=== PATIENT | female | born 1955 | race Caucasian/White ===

== ENCOUNTER 2018-11-02 19:38 | Inpatient (IN) | payer BC ==
--- NOTE | 2018-11-02 21:56 | ER Document Report ---
ED Medical Screen (RME) - General Chief Complaint: Abnormal Lab Results Stated Complaint: MD REFERRAL Time Seen by Provider: 11/02/18 21:54 Notes: Patient is a 62-year-old female presents the emergency department for abnormal lab values. Patient states she was called by her primary care provider Francisco J Valera at [facility] who told her that after getting labs today her sodium level was low and she needed to present to the emergency room. Patient states her only complaint at this time is intermittent dysuria. Patient states she has had extensive history of recurrent urinary tract infections. Physical exam: Lung sounds clear and equal in all nunez, abdomen soft nontender, GCS 15. I have greeted and performed a rapid initial assessment of this patient. A comprehensive ED assessment and evaluation of the patient, analysis of test results and completion of the medical decision making process will be conducted by additional ED providers. TRAVEL OUTSIDE OF THE [place] IN LAST 30 DAYS: No Physical Exam - Vital signs Vitals: Temp Pulse Resp BP Pulse Ox 98.8 F 82 18 166/87 H 96 11/02/18 19:57 11/02/18 19:57 11/02/18 19:57 11/02/18 19:57 11/02/18 19:57 Course - Vital Signs Vital signs: Temp Pulse Resp BP Pulse Ox 98.8 F 82 18 166/87 H 96 11/02/18 19:57 11/02/18 19:57 11/02/18 19:57 11/02/18 19:57 11/02/18 19:57 Doctor's Discharge - Discharge Referrals: FRANCISCO J MACIAS PA-C [Primary Care Provider] - Follow up as needed
--- NOTE | 2018-11-02 22:24 | ER Document Report ---
ED General - General Chief Complaint: Abnormal Lab Results Stated Complaint: MD REFERRAL Time Seen by Provider: 11/02/18 21:54 Notes: Patient is a 62-year-old female that comes to the emergency department for chief complaint of abnormal lab values. Patient states that she was referred to nephrology (Dr. Silva), had labs performed today, was contacted and told to go to the emergency department because her sodium level was 119. She states that she has had nausea and her states she has been acting sluggish. She denies fever chills, chest pain, dizziness. Patient states that ever since the holidays she has had more trouble eating and she has had different times where she had vomiting episodes, this has mostly resolved but her electrolyte have been abnormal since that time. Patient's only symptom complaint is intermittent dysuria. She states she has repeated urinary tract infections. Remaining medical history includes cholecystectomy, partial hysterectomy, hyperlipidemia, and resolved breast cancer after mastectomy and chemotherapy. TRAVEL OUTSIDE OF THE [place] IN LAST 30 DAYS: No Past Medical History - General Information source: Patient - Social History Smoking Status: Never Smoker Frequency of alcohol use: None Drug Abuse: None Lives with: Family Family History: Reviewed & Not Pertinent - Past Medical History Cardiac Medical History: Reports: Hx Hypercholesterolemia Malignancy Medical History: Reports: Hx Breast Cancer Past Surgical History: Reports: Hx Cholecystectomy, Hx Hysterectomy - Immunizations Hx Diphtheria, Pertussis, Tetanus Vaccination: Yes Review of Systems - Review of Systems Constitutional: See HPI EENT: No symptoms reported Cardiovascular: No symptoms reported Respiratory: No symptoms reported Gastrointestinal: See HPI Genitourinary: No symptoms reported Female Genitourinary: No symptoms reported Musculoskeletal: No symptoms reported Skin: No symptoms reported Hematologic/Lymphatic: No symptoms reported Neurological/Psychological: See HPI Physical Exam - Vital signs Vitals: Temp Pulse Resp BP Pulse Ox 98.8 F 82 18 166/87 H 96 11/02/18 19:57 11/02/18 19:57 11/02/18 19:57 11/02/18 19:57 11/02/18 19:57 - Notes Notes: Patient is well-appearing on exam. Unremarkable neurological exam. No current complaints other than occasional vague nausea and has been reporting that she is being sluggish. CBC generally unremarkable. Urinalysis does not show infection. Chemistry does show hyponatremia at 122. I suspect this is diet related based on patient's reported history over the past several weeks of difficulty with her diet. Seizure precautions in place, patient on monitor, because of hyponatremia will discuss with hospitalist for admission. Discussed with Dr. Meier. Discussed with Dr. Carpio, hospitalist, patient will be admitted to [facility]. Patient and family member state agreement with plan. Course - Vital Signs Vital signs: Temp Pulse Resp BP Pulse Ox 98.8 F 82 17 166/87 H 96 11/02/18 19:57 11/02/18 19:57 11/03/18 02:00 11/02/18 19:57 11/03/18 01:00 - Laboratory Result Diagrams: 11/02/18 22:30 11/03/18 04:12 Laboratory results interpreted by me: 11/02/18 11/02/18 11/02/18 22:08 22:30 22:30 Monocytes % 15.0 H Sodium 122.4 L Chloride 84 L Carbon Dioxide 31 H Serum Osmolality Ur Leukocyte Esterase TRACE H 11/02/18 22:30 Monocytes % Sodium Chloride Carbon Dioxide Serum Osmolality 249 L Ur Leukocyte Esterase Discharge - Discharge Clinical Impression: Hyponatremia, Nausea Condition: Stable Disposition: ADMITTED INPATIENT Admitting Provider: Hospitalist Unit Admitted: [facility]
[2018-11-02 22:35] LABS: ABSOLUTE LYMPHOCYTES (AUTO) 0.8 10^3/uL (0.5-4.7); ABSOLUTE MONOCYTES (AUTO) 0.6 10^3/uL (0.1-1.4); ABSOLUTE NEUT (AUTO) 2.6 10^3/uL (1.7-8.2); BASOPHILS % (AUTO) 0.6 % (0-2); EOSINOPHILS % (AUTO) 0.9 % (0-6); HEMATOCRIT 41.1 % (36.0-47.0); HEMOGLOBIN 14.5 g/dL (12.0-15.5); LYMPHOCYTES % (AUTO) 18.7 % (13-45); MEAN CORPUSCULAR HEMOGLOBIN 30.2 pg (27.0-33.4); MEAN CORPUSCULAR HGB CONC 35.4 g/dL (32.0-36.0); MEAN CORPUSCULAR VOLUME 86 fl (80-97); PLATELET COUNT 273 10^3/uL (150-450); RED BLOOD COUNT 4.81 10^6/uL (3.72-5.28); RED CELL DISTRIBUTION WIDTH 13.7 % (11.5-14.0); SEGMENTED NEUTROPHILS % (AUTO) 64.8 % (42-78); TOTAL CELLS COUNTED % (AUTO) 100 %; WHITE BLOOD COUNT 4.1 10^3/uL (4.0-10.5)
[2018-11-02 22:37] LABS: APPEARANCE,URINE SLIGHTLY-CLOUDY; BILIRUBIN,URINE NEGATIVE (NEGATIVE); COLOR,URINE YELLOW; GLUCOSE, URINE NEGATIVE (NEGATIVE); KETONES,URINE NEGATIVE (NEGATIVE); LEUKOCYTE ESTERASE,URINE TRACE (NEGATIVE); NITRITE,URINE NEGATIVE (NEGATIVE); PROTEIN,URINE NEGATIVE (NEGATIVE); URINE SPECIFIC GRAVITY 1.011; UROBILINOGEN,URINE NEGATIVE mg/dL (<2.0)
[2018-11-02 22:48] LABS: ALANINE AMINOTRANSFERASE 26 U/L (9-52); ALBUMIN 4.5 g/dL (3.5-5.0); ALKALINE PHOSPHATASE 114 U/L (38-126); ANION GAP 7 (5-19); ASPARTATE AMINO TRANSFERASE 28 U/L (14-36); BILIRUBIN,DIRECT 0.3 mg/dL (0.0-0.4); BILIRUBIN,TOTAL 0.6 mg/dL (0.2-1.3); BLOOD UREA NITROGEN 12 mg/dL (7-20); CALCIUM 9.3 mg/dL (8.4-10.2); CARBON DIOXIDE 31 mmol/L (22-30); CHLORIDE 84 mmol/L (98-107); GLUCOSE 99 mg/dL (75-110); POTASSIUM 4.2 mmol/L (3.6-5.0); SODIUM 122.4 mmol/L (137-145); TOTAL PROTEIN 7.1 g/dL (6.3-8.2)
[2018-11-02] MEDS ORDERED: NORMAL SALINE 1000 ML 1,000 ML IV PRN ×2 (23:08→23:30)
[2018-11-02] MEDS ORDERED: MAG HYDROX/AL HYDROX/SIMETH SUSP 30 ML UDCUP PO PRN (23:17)
[2018-11-03] MEDS ORDERED: FUROSEMIDE INJ/PF 20 MG/2 ML SDV IV ONE (00:08)
[2018-11-03 04:37] LABS: ANION GAP 7 (5-19); BLOOD UREA NITROGEN 12 mg/dL (7-20); CALCIUM 8.9 mg/dL (8.4-10.2); CARBON DIOXIDE 32 mmol/L (22-30); CHLORIDE 86 mmol/L (98-107); GLUCOSE 98 mg/dL (75-110); POTASSIUM 3.8 mmol/L (3.6-5.0); SODIUM 124.8 mmol/L (137-145)
[2018-11-03] MEDS: HEPARIN SOD (PORCINE) 5,000 UNIT/ML 1 ML SYRINGE SUBCUT SCH ×3 (05:34→21:33)
[2018-11-03] MEDS ORDERED: SODIUM CHLORIDE 3% 500 ML IV ONE (06:03)
[2018-11-03] MEDS ORDERED: HYDRALAZINE HCL INJ/PF 20 MG/1 ML SDV IV PRN (06:06)
[2018-11-03] MEDS ORDERED: SODIUM CHLORIDE 3% 150 ML IV ONE ×2 (06:17→06:30)
--- NOTE | 2018-11-03 06:22 | PDOC H&P ---
History of Present Illness Admission Date/PCP: 11/02/18 23:27 LEXIE WOODS MD Patient complains of: Abnormal labs and nausea History of Present Illness: DAYTON LAM is a 62 year old female with a past medical history of depression, resolved breast cancer status post mastectomy and chemotherapy, and hypertension who has had hyponatremia in the 120s from July who was found to have a sodium of 119 and referred to the hospital emergency department for e valuation. Patient has been consuming 64 ounces of Pedialyte over the last 2 months for treatment. Also complains of fatigue and intermittent nausea but denies vomiting, headache or seizure activity. In the emergency room she is found to have a sodium of 122 she receives Zofran and is referred to the hospitalist for admission. She admits a recent increase to her Paxil dose 2 months ago. Patient says she is constantly drinking whether it be Pedialyte or diet Sprite. Past Medical History Cardiac Medical History: Reports: Hyperlipidema Malignancy Medical History: Reports: Breast Cancer Psychiatric Medical History: Reports: Depression Past Surgical History Past Surgical History: Reports: Cholecystectomy, Hysterectomy Social History Information Source: Patient Lives with: Family Smoking Status: Never Smoker Frequency of Alcohol Use: None Drugs: None Hx Prescription Drug Abuse: No - Advance Directive Resuscitation Status: Full Code Family History Family History: Hypertension Parental Family History Reviewed: Yes Children Family History Reviewed: Yes Sibling(s) Family History Reviewed.: Yes Review of Systems Constitutional: PRESENT: as per HPI, fatigue, weakness, weight gain. ABSENT: fe anthony(s), headache(s), night sweats Eyes: ABSENT: visual disturbances Ears: ABSENT: hearing changes Cardiovascular: ABSENT: chest pain, dyspnea on exertion, edema, orthropnea, palpitations Respiratory: ABSENT: cough, hemoptysis Gastrointestinal: ABSENT: abdominal pain, constipation, diarrhea, hematemesis, hematochezia, nausea, vomiting Genitourinary: ABSENT: dysuria, hematuria Musculoskeletal: PRESENT: muscle weakness. ABSENT: joint swelling Integumentary: ABSENT: rash, wounds Neurological: ABSENT: abnormal gait, abnormal speech, confusion, dizziness, focal weakness, syncope Psychiatric: ABSENT: anxiety, depression, homidical ideation, suicidal ideation Endocrine: ABSENT: cold intolerance, heat intolerance, polydipsia, polyuria Hematologic/Lymphatic: ABSENT: easy bleeding, easy bruising Physical Exam Vital Signs: Temp Pulse Resp BP Pulse Ox 98.8 F 82 17 166/87 H 96 11/02/18 19:57 11/02/18 19:57 11/03/18 02:00 11/02/18 19:57 11/03/18 01:00 Intake & Output 11/01/18 11/02/18 11/03/18 11:59 11:59 11:59 Weight 84.4 kg General appearance: PRESENT: no acute distress, well-developed, well-nourished Head exam: PRESENT: atraumatic, normocephalic Eye exam: PRESENT: conjunctiva pink, EOMI, PERRLA. ABSENT: scleral icterus Ear exam: PRESENT: normal external ear exam Mouth exam: PRESENT: moist, tongue midline Neck exam: ABSENT: carotid bruit, JVD, lymphadenopathy, thyromegaly Respiratory exam: PRESENT: clear to auscultation jacqiu. ABSENT: rales, rhonchi, wheezes Cardiovascular exam: PRESENT: RRR. ABSENT: diastolic murmur, rubs, systolic murmur Pulses: PRESENT: normal dorsalis pedis pul Vascular exam: PRESENT: normal capillary refill GI/Abdominal exam: PRESENT: normal bowel sounds, soft. ABSENT: distended, guarding, mass, organolmegaly, rebound, tenderness Rectal exam: PRESENT: deferred Extremities exam: PRESENT: full ROM. ABSENT: calf tenderness, clubbing, pedal edema Neurological exam: PRESENT: alert, awake, oriented to person, oriented to place, oriented to time, oriented to situation, CN II-XII grossly intact. ABSENT: motor sensory deficit Psychiatric exam: PRESENT: appropriate affect, normal mood. ABSENT: homicidal ideation, suicidal ideation Skin exam: PRESENT: dry, intact, warm. ABSENT: cyanosis, rash Results Laboratory Results: 11/02/18 22:30 11/03/18 04:12 11/02/18 11/02/18 11/02/18 22:08 22:08 22:30 WBC 4.1 RBC 4.81 Hgb 14.5 Hct 41.1 MCV 86 MCH 30.2 MCHC 35.4 RDW 13.7 Plt Count 273 Seg Neutrophils % 64.8 Lymphocytes % 18.7 Monocytes % 15.0 H Eosinophils % 0.9 Basophils % 0.6 Absolute Neutrophils 2.6 Absolute Lymphocytes 0.8 Absolute Monocytes 0.6 Absolute Eosinophils 0.0 Absolute Basophils 0.0 Sodium Potassium Chloride Carbon Dioxide Anion Gap BUN Creatinine Est GFR ( Amer) Est GFR (Non-Af Amer) Glucose Serum Osmolality Calcium Total Bilirubin AST ALT Alkaline Phosphatase Total Protein Albumin TSH Urine Color YELLOW Urine Appearance SLIGHTLY-CLOUDY Urine pH 7.0 Ur Specific [place] 1.011 Urine Protein NEGATIVE Urine Glucose (UA) NEGATIVE Urine Ketones NEGATIVE Urine Blood NEGATIVE Urine Nitrite NEGATIVE Ur Leukocyte Esterase TRACE H Urine WBC (Auto) 5 Urine RBC (Auto) 1 Urine Osmolality 487 11/02/18 11/02/18 11/02/18 22:30 22:30 22:30 WBC RBC Hgb Hct MCV MCH MCHC RDW Plt Count Seg Neutrophils % Lymphocytes % Monocytes % Eosinophils % Basophils % Absolute Neutrophils Absolute Lymphocytes Absolute Monocytes Absolute Eosinophils Absolute Basophils Sodium 122.4 L Potassium 4.2 Chloride 84 L Carbon Dioxide 31 H Anion Gap 7 BUN 12 Creatinine 0.61 Est GFR ( Amer) > 60 Est GFR (Non-Af Amer) > 60 Glucose 99 Serum Osmolality 249 L Calcium 9.3 Total Bilirubin 0.6 AST 28 ALT 26 Alkaline Phosphatase 114 Total Protein 7.1 Albumin 4.5 TSH 2.91 Urine Color Urine Appearance Urine pH Ur Specific [place] Urine Protein Urine Glucose (UA) Urine Ketones Urine Blood Urine Nitrite Ur Leukocyte Esterase Urine WBC (Auto) Urine RBC (Auto) Urine Osmolality 11/03/18 04:12 WBC RBC Hgb Hct MCV MCH MCHC RDW Plt Count Seg Neutrophils % Lymphocytes % Monocytes % Eosinophils % Basophils % Absolute Neutrophils Absolute Lymphocytes Absolute Monocytes Absolute Eosinophils Absolute Basophils Sodium 124.8 L Potassium 3.8 Chloride 86 L Carbon Dioxide 32 H Anion Gap 7 BUN 12 Creatinine 0.57 Est GFR ( Amer) > 60 Est GFR (Non-Af Amer) > 60 Glucose 98 Serum Osmolality Calcium 8.9 Total Bilirubin AST ALT Alkaline Phosphatase Total Protein Albumin TSH Urine Color Urine Appearance Urine pH Ur Specific [place] Urine Protein Urine Glucose (UA) Urine Ketones Urine Blood Urine Nitrite Ur Leukocyte Esterase Urine WBC (Auto) Urine RBC (Auto) Urine Osmolality 11/02/18 22:30 NT-Pro-B Natriuret Pep 103 Assessment & Plan - Diagnosis (1) Hyponatremia Is this a current diagnosis for this admission?: Yes Plan: Appears hypotonic, normovolemic follow-up blood and urine osmolarity, urine sodium, trial 3% saline, 150 mL at 75 mL/h, given nausea and fluid restriction. Follow-up chemistry every 6 hours. (2) Nausea Is this a current diagnosis for this admission?: Yes Plan: Secondary to #1, 3% saline and Zofran as needed - Time Time Spent: 50 to 70 Minutes - Inpatient Certification Medical Necessity: Need Close Monitoring Due to Risk of Patient Decompensation
--- NOTE | 2018-11-03 07:14 | EKG REPORT ---
SEVERITY:- ABNORMAL ECG - SINUS RHYTHM PROBABLE LEFT ATRIAL ABNORMALITY RBBB AND LAFB LEFT VENTRICULAR HYPERTROPHY : Confirmed by: Tyshawn Weiss MD 03-Nov-2018 07:13:59
[2018-11-03 11:01] LABS: ANION GAP 7 (5-19); BLOOD UREA NITROGEN 14 mg/dL (7-20); CALCIUM 8.6 mg/dL (8.4-10.2); CARBON DIOXIDE 29 mmol/L (22-30); CHLORIDE 89 mmol/L (98-107); GLUCOSE 111 mg/dL (75-110); POTASSIUM 3.6 mmol/L (3.6-5.0); SODIUM 124.9 mmol/L (137-145)
[2018-11-03] MEDS: ACETAMINOPHEN 325 MG TABLET PO PRN (12:46)
--- NOTE | 2018-11-03 16:41 | PDOC PROGRESS REPORT ---
Subjective Progress Note for:: 11/03/18 Subjective:: No adverse events overnight. No new complaints. No chest pain or shortness of breath. She said she had been having a cough but she never coughed while I was in the room with her. No fevers. No wheezing. She said that she had been on Paxil for about a year and her dose was increased last month. Reason For Visit: HYPONATREMIA,NAUSEA Physical Exam Vital Signs: Temp Pulse Resp BP Pulse Ox 98.8 F 76 16 131/55 H 97 11/03/18 15:08 11/03/18 15:08 11/03/18 15:08 11/03/18 15:08 11/03/18 15:08 Intake & Output 11/02/18 11/03/18 11/04/18 06:59 06:59 06:59 Intake Total 1150 Balance 1150 Weight 84.4 kg General appearance: PRESENT: no acute distress, cooperative, obese Respiratory exam: PRESENT: clear to auscultation jacqui, symmetrical, unlabored. ABSENT: accessory muscle use, crackles, rhonchi, tachypnea, wheezes Cardiovascular exam: PRESENT: RRR, +S1, +S2 Vascular exam: PRESENT: normal capillary refill GI/Abdominal exam: PRESENT: normal bowel sounds, soft. ABSENT: distended, guarding, rebound, tenderness Extremities exam: ABSENT: clubbing, pedal edema Musculoskeletal exam: PRESENT: normal inspection. ABSENT: deformity Neurological exam: PRESENT: alert, awake, oriented to person, oriented to place, oriented to time, oriented to situation Psychiatric exam: PRESENT: appropriate affect, normal mood Skin exam: PRESENT: dry, warm Results Laboratory Results: 11/02/18 22:30 11/03/18 10:24 11/02/18 11/02/18 11/02/18 22:08 22:08 22:30 WBC 4.1 RBC 4.81 Hgb 14.5 Hct 41.1 MCV 86 MCH 30.2 MCHC 35.4 RDW 13.7 Plt Count 273 Seg Neutrophils % 64.8 Lymphocytes % 18.7 Monocytes % 15.0 H Eosinophils % 0.9 Basophils % 0.6 Absolute Neutrophils 2.6 Absolute Lymphocytes 0.8 Absolute Monocytes 0.6 Absolute Eosinophils 0.0 Absolute Basophils 0.0 Sodium Potassium Chloride Carbon Dioxide Anion Gap BUN Creatinine Est GFR ( Amer) Est GFR (Non-Af Amer) Glucose Serum Osmolality Calcium Total Bilirubin AST ALT Alkaline Phosphatase Total Protein Albumin TSH Urine Color YELLOW Urine Appearance SLIGHTLY-CLOUDY Urine pH 7.0 Ur Specific [place] 1.011 Urine Protein NEGATIVE Urine Glucose (UA) NEGATIVE Urine Ketones NEGATIVE Urine Blood NEGATIVE Urine Nitrite NEGATIVE Ur Leukocyte Esterase TRACE H Urine WBC (Auto) 5 Urine RBC (Auto) 1 Urine Osmolality 487 11/02/18 11/02/18 11/02/18 22:30 22:30 22:30 WBC RBC Hgb Hct MCV MCH MCHC RDW Plt Count Seg Neutrophils % Lymphocytes % Monocytes % Eosinophils % Basophils % Absolute Neutrophils Absolute Lymphocytes Absolute Monocytes Absolute Eosinophils Absolute Basophils Sodium 122.4 L Potassium 4.2 Chloride 84 L Carbon Dioxide 31 H Anion Gap 7 BUN 12 Creatinine 0.61 Est GFR ( Amer) > 60 Est GFR (Non-Af Amer) > 60 Glucose 99 Serum Osmolality 249 L Calcium 9.3 Total Bilirubin 0.6 AST 28 ALT 26 Alkaline Phosphatase 114 Total Protein 7.1 Albumin 4.5 TSH 2.91 Urine Color Urine Appearance Urine pH Ur Specific [place] Urine Protein Urine Glucose (UA) Urine Ketones Urine Blood Urine Nitrite Ur Leukocyte Esterase Urine WBC (Auto) Urine RBC (Auto) Urine Osmolality 11/03/18 11/03/18 04:12 10:24 WBC RBC Hgb Hct MCV MCH MCHC RDW Plt Count Seg Neutrophils % Lymphocytes % Monocytes % Eosinophils % Basophils % Absolute Neutrophils Absolute Lymphocytes Absolute Monocytes Absolute Eosinophils Absolute Basophils Sodium 124.8 L 124.9 L Potassium 3.8 3.6 Chloride 86 L 89 L Carbon Dioxide 32 H 29 Anion Gap 7 7 BUN 12 14 Creatinine 0.57 0.59 Est GFR ( Amer) > 60 > 60 Est GFR (Non-Af Amer) > 60 > 60 Glucose 98 111 H Serum Osmolality Calcium 8.9 8.6 Total Bilirubin AST ALT Alkaline Phosphatase Total Protein Albumin TSH Urine Color Urine Appearance Urine pH Ur Specific [place] Urine Protein Urine Glucose (UA) Urine Ketones Urine Blood Urine Nitrite Ur Leukocyte Esterase Urine WBC (Auto) Urine RBC (Auto) Urine Osmolality 11/02/18 22:30 NT-Pro-B Natriuret Pep 103 Assessment & Plan - Diagnosis (1) Hyponatremia Is this a current diagnosis for this admission?: Yes Plan: Her Paxil has been discontinued. Normal saline is she has had a slight improvement in her sodium. We will continue to monitor her sodium at regular intervals as we try to replace it slowly IV. Apparently this is been an issue is been going on with her for some time. She said that she had recently been to see a mail inserter about it as well, and will have her follow-up with them after discharge. - Time Time Spent with patient: 15-24 minutes
[2018-11-03 17:12] LABS: ANION GAP 7 (5-19); BLOOD UREA NITROGEN 18 mg/dL (7-20); CALCIUM 8.8 mg/dL (8.4-10.2); CARBON DIOXIDE 29 mmol/L (22-30); CHLORIDE 89 mmol/L (98-107); GLUCOSE 101 mg/dL (75-110); POTASSIUM 4.1 mmol/L (3.6-5.0); SODIUM 124.6 mmol/L (137-145)
[2018-11-03] MEDS: NORMAL SALINE 1000 ML 1,000 ML IV PRN (18:03)
[2018-11-03 23:08] LABS: ANION GAP 7 (5-19); BLOOD UREA NITROGEN 18 mg/dL (7-20); CALCIUM 8.7 mg/dL (8.4-10.2); CARBON DIOXIDE 27 mmol/L (22-30); CHLORIDE 90 mmol/L (98-107); GLUCOSE 125 mg/dL (75-110); POTASSIUM 3.5 mmol/L (3.6-5.0); SODIUM 124.1 mmol/L (137-145)
[2018-11-04] MEDS: ACETAMINOPHEN 325 MG TABLET PO PRN ×3 (05:11→21:37)
[2018-11-04] MEDS: HEPARIN SOD (PORCINE) 5,000 UNIT/ML 1 ML SYRINGE SUBCUT SCH ×3 (05:14→21:38)
[2018-11-04] MEDS: NORMAL SALINE 1000 ML 1,000 ML IV PRN (06:45)
[2018-11-04 14:32] LABS: URINE SODIUM 124 mmol/L (30-90)
[2018-11-04 14:38] LABS: OSMOLALITY,URINE 453 mOsm/kg (300-900)
--- NOTE | 2018-11-04 19:07 | PDOC PROGRESS REPORT ---
Subjective Progress Note for:: 11/04/18 Subjective:: No adverse events overnight. No new complaints. Vital signs been stable. She still has a little bit of intermittent headache off and on. Her chief concern seems to be that her antidepressant was stopped. Reason For Visit: HYPONATREMIA,NAUSEA Physical Exam Vital Signs: Temp Pulse Resp BP Pulse Ox 97.8 F 86 16 146/71 H 99 11/04/18 12:31 11/04/18 14:00 11/04/18 12:31 11/04/18 12:31 11/04/18 12:31 Intake & Output 11/03/18 11/04/18 11/05/18 06:59 06:59 06:59 Intake Total 2428 Balance 2428 Weight 84.4 kg 85 kg General appearance: PRESENT: no acute distress, cooperative, obese Respiratory exam: PRESENT: clear to auscultation jacqui, symmetrical, unlabored. ABSENT: accessory muscle use, crackles, rhonchi, tachypnea, wheezes Cardiovascular exam: PRESENT: RRR, +S1, +S2 Vascular exam: PRESENT: normal capillary refill GI/Abdominal exam: PRESENT: normal bowel sounds, soft. ABSENT: distended, guarding, rebound, tenderness Extremities exam: ABSENT: clubbing, pedal edema Musculoskeletal exam: PRESENT: normal inspection. ABSENT: deformity Neurological exam: PRESENT: alert, awake, oriented to person, oriented to place, oriented to time, oriented to situation Psychiatric exam: PRESENT: appropriate affect, normal mood Skin exam: PRESENT: dry, warm Results Laboratory Results: 11/02/18 22:30 11/03/18 22:36 11/03/18 11/04/18 22:36 13:44 Sodium 124.1 L Potassium 3.5 L Chloride 90 L Carbon Dioxide 27 Anion Gap 7 BUN 18 Creatinine 0.60 Est GFR ( Amer) > 60 Est GFR (Non-Af Amer) > 60 Glucose 125 H Calcium 8.7 Urine Osmolality 453 11/02/18 22:08 Clean Catch Midstream Urine Culture - Final Mixed Urogenital Cassi 11/02/18 22:30 NT-Pro-B Natriuret Pep 103 Assessment & Plan - Diagnosis (1) Hyponatremia Is this a current diagnosis for this admission?: Yes Plan: Her volume status has been corrected and her urine output has been good, but her sodium has not changed. Check some other tests on her, and her TSH is normal, and her morning cortisol is normal. 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 She had a low serum osmolality, high urine osmolality, and a high urine sodium. In addition to stopping her Paxil, I am going to stop her IV fluids and place her on a fluid restriction. - Time Time Spent with patient: 15-24 minutes
[2018-11-04] MEDS ORDERED: LABETALOL HCL INJ 20 MG/4 ML DISP.SYRIN IV PRN (22:02)
[2018-11-05] MEDS: HEPARIN SOD (PORCINE) 5,000 UNIT/ML 1 ML SYRINGE SUBCUT SCH ×3 (05:35→21:17)
[2018-11-05 10:50] LABS: ANION GAP 11 (5-19); BLOOD UREA NITROGEN 13 mg/dL (7-20); CALCIUM 9.4 mg/dL (8.4-10.2); CARBON DIOXIDE 28 mmol/L (22-30); CHLORIDE 86 mmol/L (98-107); GLUCOSE 137 mg/dL (75-110); POTASSIUM 3.7 mmol/L (3.6-5.0)
[2018-11-05] MEDS: ACETAMINOPHEN 325 MG TABLET PO PRN (11:48)
--- NOTE | 2018-11-05 16:54 | PDOC PROGRESS REPORT ---
Subjective Progress Note for:: 11/05/18 Subjective:: No adverse events overnight. No new complaints. Vital signs been stable. Her urine outputs been good and she says the color has lightened up substantially even though she has not been on IV fluids since yesterday. She told me about a chest x-ray that was done at the imaging center and she said the radiologist told her that he "saw something on it" and recommended that she have an ultrasound. I saw the images but there was no report and I was unable to get a return call from the imaging center. Reason For Visit: HYPONATREMIA,NAUSEA Physical Exam Vital Signs: Temp Pulse Resp BP Pulse Ox 98.6 F 71 18 144/64 H 99 11/05/18 14:53 11/05/18 14:53 11/05/18 14:53 11/05/18 14:53 11/05/18 14:53 Intake & Output 11/04/18 11/05/18 11/06/18 06:59 06:59 06:59 Intake Total 2428 300 Balance 2428 300 Weight 85 kg 86.9 kg General appearance: PRESENT: no acute distress, cooperative, obese Respiratory exam: PRESENT: clear to auscultation jacqui, symmetrical, unlabored. ABSENT: accessory muscle use, crackles, rhonchi, tachypnea, wheezes Cardiovascular exam: PRESENT: RRR, +S1, +S2 Vascular exam: PRESENT: normal capillary refill GI/Abdominal exam: PRESENT: normal bowel sounds, soft. ABSENT: distended, guarding, rebound, tenderness Extremities exam: ABSENT: clubbing, pedal edema Musculoskeletal exam: PRESENT: normal inspection. ABSENT: deformity Neurological exam: PRESENT: alert, awake, oriented to person, oriented to place, oriented to time, oriented to situation Psychiatric exam: PRESENT: appropriate affect, normal mood Skin exam: PRESENT: dry, warm Results Laboratory Results: 11/02/18 22:30 11/05/18 10:06 11/05/18 10:06 Sodium 125.0 L Potassium 3.7 Chloride 86 L Carbon Dioxide 28 Anion Gap 11 BUN 13 Creatinine 0.67 Est GFR ( Amer) > 60 Est GFR (Non-Af Amer) > 60 Glucose 137 H Calcium 9.4 11/02/18 22:30 NT-Pro-B Natriuret Pep 103 Assessment & Plan - Diagnosis (1) Hyponatremia Is this a current diagnosis for this admission?: Yes Plan: SIADH is suspected. Paxil has been discontinued. She is being fluid restricted. Sodium is up about a point from yesterday, we will continue to monitor. Because of her history of breast cancer, I may do a CT scan of her [address], because I could not make out anything big and obvious on the chest x-ray, and I have not heard back from the radiologist about the report on the x-ray in question. - Time Time Spent with patient: 15-24 minutes
[2018-11-06] MEDS: HEPARIN SOD (PORCINE) 5,000 UNIT/ML 1 ML SYRINGE SUBCUT SCH ×3 (05:29→22:15)
[2018-11-06 09:45] LABS: ANION GAP 11 (5-19); BLOOD UREA NITROGEN 14 mg/dL (7-20); CALCIUM 9.3 mg/dL (8.4-10.2); CARBON DIOXIDE 27 mmol/L (22-30); CHLORIDE 86 mmol/L (98-107); GLUCOSE 118 mg/dL (75-110); SODIUM 124.1 mmol/L (137-145)
[2018-11-06 09:47] LABS: POTASSIUM 3.6 mmol/L (3.6-5.0)
--- NOTE | 2018-11-06 12:04 | RADIOLOGY REPORT (SQ) ---
EXAM DESCRIPTION: CT CHEST WITH COMPLETED DATE/TIME: 11/06/2018 11:37 am REASON FOR STUDY: cough, hyponatremia, possible mass on x-ray COMPARISON: Chest x-ray dated 11/02/2018. TECHNIQUE: CT scan of the chest performed using helical scanning technique with dynamic intravenous contrast injection. Images reviewed with lung, soft tissue and bone windows. Reconstructed coronal and sagittal MPR and MIP images reviewed. All images stored on PACS. All CT scanners at this facility use dose modulation, iterative reconstruction, and/or weight based d osing when appropriate to reduce radiation dose to as low as reasonably achievable (ALARA). [facility]: Dose Right [facility]: CareDose [facility]: Dose Right [facility]: Teradose 4D [facility]: [employer] CONTRAST TYPE AND DOSE: contrast/concentration: Isovue 350.00 mg/ml; Total Contrast Delivered: 80.0 ml; Total Saline Delivered: 55.0 ml RENAL FUNCTION: BUN 13 creatinine 0.67. RADIATION DOSE: CT Rad equipment meets quality standard of care and radiation dose reduction techniq ues were employed. CTDIvol: 9.7 mGy. DLP: 372 mGy-cm. . LIMITATIONS: None. FINDINGS: LUNGS AND PLEURA: Irregular lobular mass in the right hilum extending into the right lower lobe. Transverse measurements approximately 2.8 cm. Mild linear atelectasis/ scarring in the right lower lobe. No other nodules or masses. No pleural effusion or pleural thickening. HILAR AND MEDIASTINAL STRUCTURES: Enlarged precarinal lymph node measuring 2 x 3 cm. HEART AND VASCULAR STRUCTURES: No aneurysm or dissection. No central pulmonary emboli. No pericardi al effusion. HARDWARE: Left breast implant. UPPER ABDOMEN: No significant findings. Limited exam. THYROID AND OTHER SOFT TISSUES: No masses. No adenopathy. BONES: No significant finding. OTHER: No other significant finding. IMPRESSION: IRREGULAR LOBULAR MASS IN THE RIGHT HILUM EXTENDING INTO THE RIGHT LOWER LOBE. THIS COR RESPONDS WITH THE X-RAY FINDING. THIS COULD BE A PRIMARY TUMOR OR METASTASIS. THERE IS ALSO AN ENLA RGED PRECARINAL LYMPH NODE CONCERNING FOR METASTATIC ADENOPATHY. TECHNICAL DOCUMENTATION: JOB ID: [id number] Quality ID # [id number]: Final reports with documentation of one or more dose reduction techniques (e.g., Au tomated exposure control, adjustment of the mA and/or kV according to patient size, use of iterative reconstruction technique) 2010 [employer]- All Rights Reserved Reading location - IP/workstation name: [email or web address]
[2018-11-06] MEDS: ACETAMINOPHEN 325 MG TABLET PO PRN ×2 (12:52→20:29)
--- NOTE | 2018-11-06 19:08 | PDOC PROGRESS REPORT ---
Subjective Progress Note for:: 11/06/18 Subjective:: No adverse events overnight. No new complaints. Vital signs been stable. Her headache is gone. She has not had much of a cough today. No hemoptysis. Reason For Visit: HYPONATREMIA,NAUSEA Physical Exam Vital Signs: Temp Pulse Resp BP Pulse Ox 97.6 F 74 18 171/74 H 99 11/06/18 15:41 11/06/18 15:41 11/06/18 15:41 11/06/18 15:41 11/06/18 15:41 Intake & Output 11/05/18 11/06/18 11/07/18 06:59 06:59 06:59 Intake Total 675 550 Balance 675 550 Weight 86.9 kg 87.8 kg General appearance: PRESENT: no acute distress, cooperative, obese Respiratory exam: PRESENT: clear to auscultation jacqui, symmetrical, unlabored. ABSENT: accessory muscle use, crackles, rhonchi, tachypnea, wheezes Cardiovascular exam: PRESENT: RRR, +S1, +S2 Vascular exam: PRESENT: normal capillary refill GI/Abdominal exam: PRESENT: normal bowel sounds, soft. ABSENT: distended, guarding, rebound, tenderness Extremities exam: ABSENT: clubbing, pedal edema Musculoskeletal exam: PRESENT: normal inspection. ABSENT: deformity Neurological exam: PRESENT: alert, awake, oriented to person, oriented to place, oriented to time, oriented to situation Psychiatric exam: PRESENT: appropriate affect, normal mood Skin exam: PRESENT: dry, warm Results Laboratory Results: 11/02/18 22:30 11/06/18 09:10 11/06/18 09:10 Sodium 124.1 L Potassium 3.6 Chloride 86 L Carbon Dioxide 27 Anion Gap 11 BUN 14 Creatinine 0.63 Est GFR ( Amer) > 60 Est GFR (Non-Af Amer) > 60 Glucose 118 H Calcium 9.3 11/02/18 22:30 NT-Pro-B Natriuret Pep 103 Impressions: Chest CT 11/06/18 00:00 IMPRESSION: IRREGULAR LOBULAR MASS IN THE RIGHT HILUM EXTENDING INTO THE RIGHT LOWER LOBE. THIS CORRESPONDS WITH THE X-RAY FINDING. THIS COULD BE A PRIMARY TUMOR OR METASTASIS. THERE IS ALSO AN ENLARGED PRECARINAL LYMPH NODE CONCERNING FOR METASTATIC ADENOPATHY. Assessment & Plan - Diagnosis (1) Hyponatremia Is this a current diagnosis for this admission?: Yes Plan: Her sodium is again unchanged. Given the CT scan findings, the mass may be the source. Given that her hyponatremia is stable and she is asymptomatic, and since were already fluid restricting her, I am going to try putting her on some salt tablets. (2) Lung mass Is this a current diagnosis for this admission?: Yes Plan: She will need a biopsy. I am not sure if it is in a place were pulmonology can get to it bronchoscopically to biopsy it, but I am going to ask them to see her to help me obtain the diagnosis. - Time Time Spent with patient: 25-34 minutes
[2018-11-07] MEDS: HEPARIN SOD (PORCINE) 5,000 UNIT/ML 1 ML SYRINGE SUBCUT SCH ×3 (06:02→22:12)
[2018-11-07 08:00] LABS: ANION GAP 8 (5-19); BLOOD UREA NITROGEN 17 mg/dL (7-20); CALCIUM 8.9 mg/dL (8.4-10.2); CARBON DIOXIDE 28 mmol/L (22-30); CHLORIDE 93 mmol/L (98-107); GLUCOSE 87 mg/dL (75-110); POTASSIUM 3.4 mmol/L (3.6-5.0); SODIUM 128.7 mmol/L (137-145)
[2018-11-07] MEDS: ACETAMINOPHEN 325 MG TABLET PO PRN (13:58)
--- NOTE | 2018-11-07 14:32 | RADIOLOGY REPORT (SQ) ---
EXAM DESCRIPTION: CT HEAD WITH COMPLETED DATE/TIME: 11/07/2018 1:40 pm REASON FOR STUDY: right lung mass, r/o metastatic disease COMPARISON: None. TECHNIQUE: Axial images acquired through the brain with intravenous contrast. Images reviewed with b one, brain and subdural windows. Additional sagittal and coronal reconstructions were generated. Eli ges stored on PACS. All CT scanners at this facility use dose modulation, iterative reconstruction, and/or weight based d osing when appropriate to reduce radiation dose to as low as reasonably achievable (ALARA). [facility]: Dose Right [facility]: CareDose [facility]: Dose Right [facility]: Teradose 4D [facility]: [employer] CONTRAST TYPE AND DOSE: Not recorded not recorded RENAL FUNCTION: Not recorded RADIATION DOSE: CT Rad equipment meets quality standard of care and radiation dose reduction techniq ues were employed. CTDIvol: 53.2 mGy. DLP: 1017 mGy-cm.. LIMITATIONS: None. FINDINGS: VENTRICLES: Normal size and contour. CEREBRUM: No masses. No hemorrhage. No midline shift. Normal mendoza/white matter differentiation. No ev idence for acute infarction. No enhancing lesions. CEREBELLUM: No masses. No hemorrhage. No alteration of density. No evidence for acute infarction. No enhancing lesions. EXTRA-AXIAL SPACES: No fluid collections. No enhancing lesions. ORBITS AND GLOBE: No intra- or extraconal masses. Normal contour of globe without masses. CALVARIUM: No fracture. PARANASAL SINUSES: No fluid or mucosal thickening. SOFT TISSUES: No mass or hematoma. OTHER: No other significant finding. IMPRESSION: NORMAL BRAIN CT WITH CONTRAST. No metastases. EVIDENCE OF ACUTE STROKE: NO. TECHNICAL DOCUMENTATION: JOB ID: [id number] Quality ID # [id number]: Final reports with documentation of one or more dose reduction techniques (e.g., Au tomated exposure control, adjustment of the mA and/or kV according to patient size, use of iterative reconstruction technique) 2010 [employer]- All Rights Reserved Reading location - IP/workstation name: [email or web address]
--- NOTE | 2018-11-07 15:12 | PDOC CONSULTATION ---
Consultation Consult Date: 11/07/18 Consult reason:: Hematology/Oncology consultation was requested for patient with a history of breast cancer and now with new lung lesion. History of Present Illness Admission Date/PCP: 11/02/18 23:27 LEXIE WOODS MD History of Present Illness: DAYTON LAM is a 62 year old female who follows with oncology offine in [facility] for a history of Breast cancer. She was diagnosed about 5 years ago with Stage I invasive cancer. ER-Her2+. BRCA status is unknown. She received chemotherapy with Herceptin continued for a total of 1 year. She also underwent lumpectomy, then mastectomy with reconstruction. She did not require any radiation of anti-hormonal treatments. She states that routine labs found that her Na level had dropped suddenly to 119. She also started feeling nauseated for 2 weeks which progressively worsened. The night before admission, she had vomiting and diarrhea. She also reports a headaches but no chest pain or dyspnea. She had her mammogram in Jun of this past year as well as colonoscopy within the last year. Today, she states that her Na is finally starting to improve, but she has been very scared about what the cause is. She is concerned about the CT chest report of a new lesion. Past Medical History Cardiac Medical History: Reports: Hyperlipidema Malignancy Medical History: Reports: Breast Cancer Psychiatric Medical History: Reports: Depression Past Surgical History Past Surgical History: ovaries still in place. Breast Lumpectomy, mastectomy, with reconstruction and contralateral reduction. Past Surgical History: Reports: Cholecystectomy, Hysterectomy, Other Social History Lives with: Family Smoking Status: Current Every Day Smoker Cigarettes Packs Per Day: 1 Number of Years Smokin Frequency of Alcohol Use: None Drugs: None Hx Prescription Drug Abuse: No - Advance Directive Resuscitation Status: Full Code Family History Family History: Hypertension Family History: She has 1 child. Parental Family History Reviewed: Yes - Mom with uterine cancer. Dad CAD Children Family History Reviewed: No Sibling(s) Family History Reviewed.: Yes - Sister hypothyroid and DM Medication/Allergy Home Medications: Acetaminophen [Tylenol Extra Strength 500 mg Tablet] 1,000 mg PO Q4HP PRN 11/03/18 Ondansetron HCl [Zofran 4 mg Tablet] 4 mg PO Q6HP PRN 11/03/18 Paroxetine HCl [Paxil 20 mg Tablet] 20 mg PO QAM 11/03/18 Allergies/Adverse Reactions: codeine Allergy (Verified 11/03/18 15:03) shellfish derived Allergy (Verified 11/03/18 15:03) Review of Systems Constitutional: PRESENT: headache(s). ABSENT: fever(s) Eyes: ABSENT: visual disturbances Ears: ABSENT: hearing changes Nose, Mouth, and Throat: ABSENT: sore throat Cardiovascular: ABSENT: chest pain, palpitations Respiratory: ABSENT: dyspnea Gastrointestinal: PRESENT: diarrhea, nausea, vomiting Genitourinary: ABSENT: dysuria Integumentary: ABSENT: rash Neurological: ABSENT: confusion Psychiatric: PRESENT: anxiety Hematologic/Lymphatic: ABSENT: lymphadenopathy Physical Exam Vital Signs: Temp Pulse Resp BP Pulse Ox 98.6 F 77 16 139/67 H 97 11/07/18 07:15 11/07/18 14:00 11/07/18 07:15 11/07/18 07:15 11/07/18 07:15 Intake & Output 11/06/18 11/07/18 11/08/18 06:59 06:59 06:59 Intake Total 675 550 Balance 675 550 Weight 87.8 kg 87 kg General appearance: PRESENT: no acute distress, obese Head exam: PRESENT: normocephalic Eye exam: PRESENT: EOMI Mouth exam: PRESENT: tongue midline Neck exam: ABSENT: lymphadenopathy, tenderness Respiratory exam: PRESENT: clear to auscultation jacqui, unlabored Cardiovascular exam: PRESENT: RRR GI/Abdominal exam: PRESENT: soft. ABSENT: tenderness Extremities exam: PRESENT: +1 edema Neurological exam: PRESENT: alert, awake, oriented to person, oriented to place, oriented to time, oriented to situation Psychiatric exam: PRESENT: appropriate affect Skin exam: PRESENT: normal color Results Laboratory Results: 11/02/18 22:30 11/07/18 06:17 11/07/18 06:17 Sodium 128.7 L Potassium 3.4 L Chloride 93 L Carbon Dioxide 28 Anion Gap 8 BUN 17 Creatinine 0.56 Est GFR ( Amer) > 60 Est GFR (Non-Af Amer) > 60 Glucose 87 Calcium 8.9 11/02/18 22:30 NT-Pro-B Natriuret Pep 103 Impressions: Chest CT 11/06/18 00:00 IMPRESSION: IRREGULAR LOBULAR MASS IN THE RIGHT HILUM EXTENDING INTO THE RIGHT LOWER LOBE. THIS CORRESPONDS WITH THE X-RAY FINDING. THIS COULD BE A PRIMARY TUMOR OR METASTASIS. THERE IS ALSO AN ENLARGED PRECARINAL LYMPH NODE CONCERNING FOR METASTATIC ADENOPATHY. Head CT 11/07/18 00:00 IMPRESSION: NORMAL BRAIN CT WITH CONTRAST. No metastases. EVIDENCE OF ACUTE STROKE: NO. Status: Image reviewed by me Assessment & Plan - Diagnosis (1) Lung mass Is this a current diagnosis for this admission?: Yes Plan: I agree with plans for bronchoscopy. This could be a primary malignancy, secondary malignancy, or no malignancy at all. (2) Breast cancer Qualifiers: Laterality: unspecified laterality Is this a current diagnosis for this admission?: Yes Plan: History of Her2+ breast cancer 5 years ago. I agree with CT A/P as well as Brain. - Plan Summary Plan Summary: Headache, nausea, hyponatremia all suspicious for cancer. I reviewed results of the CT brain with the patient. No evidence of brain mets. Awaiting CT A/P results. Her care was discussed with Dr. Montenegro. I will continue to follow while in house, but on discharge, she will return to her regular oncologist in [facility].
--- NOTE | 2018-11-07 15:41 | RADIOLOGY REPORT (SQ) ---
EXAM DESCRIPTION: CT ABD/PELVIS WITH IV ORAL COMPLETED DATE/TIME: 11/07/2018 1:40 pm REASON FOR STUDY: right lung mass, r/o metastatic disease COMPARISON: Chest CT 11/06/2018 TECHNIQUE: CT scan of the abdomen and pelvis performed using helical scanning technique with dynamic intravenous contrast injection. Enteric contrast was administered. Images reviewed with lung, soft tissue, and bone windows. Reconstructed coronal and sagittal MPR images reviewed. Delayed images for evaluation of the urinary system also acquired. All images stored on PACS. All CT scanners at this facility use dose modulation, iterative reconstruction, and/or weight based d osing when appropriate to reduce radiation dose to as low as reasonably achievable (ALARA). [facility]: Dose Right [facility]: CareDose [facility]: Dose Right [facility]: Teradose 4D [facility]: [employer] CONTRAST TYPE AND DOSE: contrast/concentration: Isovue 350.00 mg/ml; Total Contrast Delivered: 99.0 ml; Total Saline Delivered: 72.0 ml 99 mL IV of Omnipaque 350- low osmolar. RENAL FUNCTION: BUN 17 creatinine 0.56 RADIATION DOSE: CT Rad equipment meets quality standard of care and radiation dose reduction techniq ues were employed. CTDIvol: 11.0 - 15.5 mGy. DLP: 1311 mGy-cm.. LIMITATIONS: None. FINDINGS: LOWER CHEST: No change from CT of 11/06/2018 LIVER: Normal size. No masses. No dilated ducts. SPLEEN: Normal size. No focal lesions. PANCREAS: No masses. No significant calcifications. No adjacent inflammation or peripancreatic fluid collections. Pancreatic duct not dilated. GALLBLADDER: Surgically absent. ADRENAL GLANDS: No significant masses or asymmetry. RIGHT KIDNEY AND URETER: No solid masses. No significant calcifications. No hydronephrosis or hyd roureter. LEFT KIDNEY AND URETER: No solid masses. No significant calcifications. No hydronephrosis or hydr oureter. AORTA AND VESSELS: No aneurysm. No dissection. Renal arteries, SMA, celiac without stenosis. RETROPERITONEUM: No retroperitoneal adenopathy, hemorrhage or masses. BOWEL AND PERITONEAL CAVITY: No dilated loops of bowel. No masses or inflammatory changes. No free fluid or peritoneal masses. APPENDIX: Normal. PELVIS: No mass. No free fluid. Urinary bladder is collapsed. Uterus is surgically absent. ABDOMINAL WALL: No masses. No hernias. BONES: No significant or acute findings. No sinister bone lesions. OTHER: No other significant finding. IMPRESSION: No evidence of metastatic disease within the abdomen or pelvis. TECHNICAL DOCUMENTATION: JOB ID: [id number] Quality ID # [id number]: Final reports with documentation of one or more dose reduction techniques (e.g., Au tomated exposure control, adjustment of the mA and/or kV according to patient size, use of iterative reconstruction technique) 2010 [employer]- All Rights Reserved Reading location - IP/workstation name: [email or web address]
--- NOTE | 2018-11-07 15:55 | PDOC PROGRESS REPORT ---
Subjective Progress Note for:: 11/07/18 Subjective:: No adverse events overnight. No new complaints. Vital signs been stable. No chest pain or shortness of breath. She is ambulating independently in the room. No cough. Reason For Visit: HYPONATREMIA,NAUSEA Physical Exam Vital Signs: Temp Pulse Resp BP Pulse Ox 98.6 F 77 16 139/67 H 97 11/07/18 07:15 11/07/18 14:00 11/07/18 07:15 11/07/18 07:15 11/07/18 07:15 Intake & Output 11/06/18 11/07/18 11/08/18 06:59 06:59 06:59 Intake Total 675 550 Balance 675 550 Weight 87.8 kg 87 kg General appearance: PRESENT: no acute distress, cooperative, obese Respiratory exam: PRESENT: clear to auscultation jacqui, symmetrical, unlabored. ABSENT: accessory muscle use, crackles, rhonchi, tachypnea, wheezes Cardiovascular exam: PRESENT: RRR, +S1, +S2 Vascular exam: PRESENT: normal capillary refill GI/Abdominal exam: PRESENT: normal bowel sounds, soft. ABSENT: distended, guarding, rebound, tenderness Extremities exam: ABSENT: clubbing, pedal edema Musculoskeletal exam: PRESENT: normal inspection. ABSENT: deformity Neurological exam: PRESENT: alert, awake, oriented to person, oriented to place, oriented to time, oriented to situation Psychiatric exam: PRESENT: appropriate affect, normal mood Skin exam: PRESENT: dry, warm Results Laboratory Results: 11/02/18 22:30 11/07/18 06:17 11/07/18 06:17 Sodium 128.7 L Potassium 3.4 L Chloride 93 L Carbon Dioxide 28 Anion Gap 8 BUN 17 Creatinine 0.56 Est GFR ( Amer) > 60 Est GFR (Non-Af Amer) > 60 Glucose 87 Calcium 8.9 11/02/18 22:30 NT-Pro-B Natriuret Pep 103 Impressions: Chest CT 11/06/18 00:00 IMPRESSION: IRREGULAR LOBULAR MASS IN THE RIGHT HILUM EXTENDING INTO THE RIGHT LOWER LOBE. THIS CORRESPONDS WITH THE X-RAY FINDING. THIS COULD BE A PRIMARY TUMOR OR METASTASIS. THERE IS ALSO AN ENLARGED PRECARINAL LYMPH NODE CONCERNING FOR METASTATIC ADENOPATHY. Abdomen/Pelvis CT 11/07/18 00:00 IMPRESSION: No evidence of metastatic disease within the abdomen or pelvis. Head CT 11/07/18 00:00 IMPRESSION: NORMAL BRAIN CT WITH CONTRAST. No metastases. EVIDENCE OF ACUTE STROKE: NO. Assessment & Plan - Diagnosis (1) Hyponatremia Is this a current diagnosis for this admission?: Yes Plan: Now improving with fluid restriction and salt tablets. 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 Paxil has been discontinued (2) Lung mass Is this a current diagnosis for this admission?: Yes Plan: I have consulted pulmonology and oncology. She will be getting a bronchoscopy in the near future for biopsy. - Time Time Spent with patient: 15-24 minutes
[2018-11-07] MEDS: ONDANSETRON HCL INJ/PF 4 MG/2 ML SDV IV PRN (20:37)
[2018-11-07] MEDS ORDERED: NALBUPHINE HCL INJ 10 MG/1 ML AMPULE IV PRN (21:45)
[2018-11-08] MEDS: ONDANSETRON HCL INJ/PF 4 MG/2 ML SDV IV PRN ×2 (02:53→07:10)
[2018-11-08] MEDS: HEPARIN SOD (PORCINE) 5,000 UNIT/ML 1 ML SYRINGE SUBCUT SCH ×4 (05:23→21:20)
[2018-11-08] MEDS: ACETAMINOPHEN 325 MG TABLET PO PRN ×3 (06:45→21:54)
[2018-11-08 06:54] LABS: ANION GAP 8 (5-19); BLOOD UREA NITROGEN 15 mg/dL (7-20); CALCIUM 9.1 mg/dL (8.4-10.2); CARBON DIOXIDE 30 mmol/L (22-30); CHLORIDE 89 mmol/L (98-107); GLUCOSE 102 mg/dL (75-110); POTASSIUM 3.4 mmol/L (3.6-5.0); SODIUM 126.7 mmol/L (137-145)
[2018-11-08] MEDS ORDERED: POTASSIUM CHLORIDE 10 MEQ CAPSULE.ER PO ONE ×2 (08:43→18:00)
[2018-11-08] MEDS ORDERED: KETOROLAC TROMETHAMINE INJ/PF 30 MG/1 ML SDV IV ONE (09:55)
[2018-11-08] MEDS ORDERED: PROMETHAZINE HCL 25 MG SUPP.RECT PR ONE (11:00)
[2018-11-08] MEDS: SODIUM CHLORIDE 1 GM TABLET PO SCH ×2 (15:52→17:30)
--- NOTE | 2018-11-08 16:35 | PDOC PROGRESS REPORT ---
Subjective Progress Note for:: 11/08/18 Subjective:: No adverse events overnight. No new complaints. She still has a little bit of a cough. No nausea or vomiting. Reason For Visit: HYPONATREMIA,NAUSEA Physical Exam Vital Signs: Temp Pulse Resp BP Pulse Ox 98.2 F 74 16 139/71 H 97 11/08/18 07:21 11/08/18 14:00 11/08/18 07:21 11/08/18 07:21 11/08/18 07:21 Intake & Output 11/07/18 11/08/18 11/09/18 06:59 06:59 06:59 Intake Total 550 1125 150 Output Total 500 Balance 550 625 150 Weight 87 kg 87 kg General appearance: PRESENT: no acute distress, cooperative, obese Respiratory exam: PRESENT: clear to auscultation jacqui, symmetrical, unlabored. ABSENT: accessory muscle use, crackles, rhonchi, tachypnea, wheezes Cardiovascular exam: PRESENT: RRR, +S1, +S2 Vascular exam: PRESENT: normal capillary refill GI/Abdominal exam: PRESENT: normal bowel sounds, soft. ABSENT: distended, guarding, rebound, tenderness Extremities exam: ABSENT: clubbing, pedal edema Musculoskeletal exam: PRESENT: normal inspection. ABSENT: deformity Neurological exam: PRESENT: alert, awake, oriented to person, oriented to place, oriented to time, oriented to situation Psychiatric exam: PRESENT: appropriate affect, normal mood Skin exam: PRESENT: dry, warm Results Laboratory Results: 11/02/18 22:30 11/08/18 05:52 11/08/18 05:52 Sodium 126.7 L Potassium 3.4 L Chloride 89 L Carbon Dioxide 30 Anion Gap 8 BUN 15 Creatinine 0.51 L Est GFR ( Amer) > 60 Est GFR (Non-Af Amer) > 60 Glucose 102 Calcium 9.1 11/02/18 22:30 NT-Pro-B Natriuret Pep 103 Impressions: Chest CT 11/06/18 00:00 IMPRESSION: IRREGULAR LOBULAR MASS IN THE RIGHT HILUM EXTENDING INTO THE RIGHT LOWER LOBE. THIS CORRESPONDS WITH THE X-RAY FINDING. THIS COULD BE A PRIMARY TUMOR OR METASTASIS. THERE IS ALSO AN ENLARGED PRECARINAL LYMPH NODE CONCERNING FOR METASTATIC ADENOPATHY. Abdomen/Pelvis CT 11/07/18 00:00 IMPRESSION: No evidence of metastatic disease within the abdomen or pelvis. Head CT 11/07/18 00:00 IMPRESSION: NORMAL BRAIN CT WITH CONTRAST. No metastases. EVIDENCE OF ACUTE STROKE: NO. Assessment & Plan - Diagnosis (1) Hyponatremia Is this a current diagnosis for this admission?: Yes Plan: Now improving with fluid restriction and salt tablets; the salt tablets somehow did not get continued but I reordered them today. 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 Paxil has been discontinued. The lung mass could also have something to do with it. (2) Lung mass Is this a current diagnosis for this admission?: Yes Plan: I have consulted pulmonology and oncology. She will be getting a bronchoscopy in the near future for biopsy. She will follow-up with oncology as an outpatient. - Time Time Spent with patient: 15-24 minutes
[2018-11-09] MEDS: HEPARIN SOD (PORCINE) 5,000 UNIT/ML 1 ML SYRINGE SUBCUT SCH ×3 (05:18→21:05)
[2018-11-09 06:12] LABS: ANION GAP 7 (5-19); BLOOD UREA NITROGEN 16 mg/dL (7-20); CALCIUM 9.1 mg/dL (8.4-10.2); CARBON DIOXIDE 29 mmol/L (22-30); CHLORIDE 91 mmol/L (98-107); GLUCOSE 92 mg/dL (75-110); POTASSIUM 3.7 mmol/L (3.6-5.0); SODIUM 127.3 mmol/L (137-145)
[2018-11-09] MEDS: ACETAMINOPHEN 325 MG TABLET PO PRN ×2 (08:37→14:40)
--- NOTE | 2018-11-09 09:38 | PDOC PROGRESS REPORT ---
Subjective Progress Note for:: 11/09/18 Subjective:: Patient had a severe migraine headache yesterday with nausea and vomiting. Today, it is a bit better. Still unsure as to cause of her headaches and vomiting. Reason For Visit: HYPONATREMIA,NAUSEA Physical Exam Vital Signs: Temp Pulse Resp BP Pulse Ox 98.3 F 73 20 152/70 H 96 11/09/18 04:07 11/09/18 07:00 11/09/18 04:07 11/09/18 04:07 11/09/18 04:07 Intake & Output 11/08/18 11/09/18 11/10/18 06:59 06:59 06:59 Intake Total 1125 705 Output Total 500 700 Balance 625 5 Weight 87 kg 86.9 kg General appearance: PRESENT: well-developed, well-nourished Head exam: PRESENT: normocephalic Respiratory exam: PRESENT: unlabored Extremities exam: ABSENT: pedal edema Neurological exam: PRESENT: alert, awake, other - Walking around in room without problems. Psychiatric exam: PRESENT: appropriate affect Skin exam: PRESENT: normal color Results Laboratory Results: 11/02/18 22:30 11/09/18 05:13 11/09/18 05:13 Sodium 127.3 L Potassium 3.7 Chloride 91 L Carbon Dioxide 29 Anion Gap 7 BUN 16 Creatinine 0.62 Est GFR ( Amer) > 60 Est GFR (Non-Af Amer) > 60 Glucose 92 Calcium 9.1 11/02/18 22:30 NT-Pro-B Natriuret Pep 103 Impressions: Chest CT 11/06/18 00:00 IMPRESSION: IRREGULAR LOBULAR MASS IN THE RIGHT HILUM EXTENDING INTO THE RIGHT LOWER LOBE. THIS CORRESPONDS WITH THE X-RAY FINDING. THIS COULD BE A PRIMARY TUMOR OR METASTASIS. THERE IS ALSO AN ENLARGED PRECARINAL LYMPH NODE CONCERNING FOR METASTATIC ADENOPATHY. Abdomen/Pelvis CT 11/07/18 00:00 IMPRESSION: No evidence of metastatic disease within the abdomen or pelvis. Head CT 11/07/18 00:00 IMPRESSION: NORMAL BRAIN CT WITH CONTRAST. No metastases. EVIDENCE OF ACUTE STROKE: NO. Assessment & Plan - Diagnosis (1) Lung mass Is this a current diagnosis for this admission?: Yes Plan: Await pathology from bronchoscopy. Dr. Romo following. (2) Breast cancer Qualifiers: Laterality: unspecified laterality Is this a current diagnosis for this admission?: Yes Plan: Currently no evidence of mets, unless lung mass is positive. - Plan Summary Plan Summary: Other problems including hyponatremia, migraines, etc. If lung biopsy is negative for cancer, consider MRI brain with contrast.
[2018-11-09] MEDS: SODIUM CHLORIDE 1 GM TABLET PO SCH ×4 (09:51→21:22)
[2018-11-09 10:48] LABS: INTERNATIONAL RATION (INR) 0.87; PROTHROMBIN TIME 12.3 SEC (11.4-15.4)
[2018-11-09 10:49] LABS: PARTIAL THROMBOPLASTIN TIME 38.3 SEC (23.5-35.8)
[2018-11-09] MEDS ORDERED: NICOTINE 14 MG/24 HR PATCH.TD24 TD ONE (13:00)
[2018-11-09] MEDS ORDERED: DEXTROSE 50%-WATER 25 GM/50 ML DISP.SYRIN IV PRN ×2 (13:29)
[2018-11-09] MEDS ORDERED: DEXTROSE 40% GEL 15 GM TUBE PO PRN ×2 (13:29)
[2018-11-09] MEDS ORDERED: GLUCAGON,HUMAN RECOMB 1 MG INJ SUBCUT PRN (13:29)
--- NOTE | 2018-11-09 13:29 | PDOC PROGRESS REPORT ---
Subjective Progress Note for:: 11/09/18 Subjective:: discussed with patient risk/dangers and benefits of bronchoscopy Reason For Visit: HYPONATREMIA,NAUSEA Physical Exam Vital Signs: Temp Pulse Resp BP Pulse Ox 98.4 F 72 18 139/68 H 100 11/09/18 11:04 11/09/18 11:04 11/09/18 11:04 11/09/18 11:04 11/09/18 11:04 Intake & Output 11/08/18 11/09/18 11/10/18 06:59 06:59 06:59 Intake Total 1125 705 450 Output Total 500 700 900 Balance 625 5 -450 Weight 87 kg 86.9 kg General appearance: PRESENT: no acute distress, cooperative, obese Head exam: PRESENT: atraumatic, normocephalic Eye exam: PRESENT: conjunctiva pale, EOMI. ABSENT: nystagmus, scleral icterus Mouth exam: PRESENT: dry mucosa, neck supple, tongue midline Neck exam: ABSENT: carotid bruit, JVD, lymphadenopathy, thyromegaly, tracheal deviation, tracheostomy Respiratory exam: PRESENT: decreased breath sounds, prolonged expiratory phas, rales, rhonchi, unlabored. ABSENT: retraction, stridor, tachypnea Cardiovascular exam: PRESENT: RRR, +S1, +S2 Pulses: PRESENT: normal radial pulses GI/Abdominal exam: PRESENT: soft. ABSENT: tenderness Extremities exam: ABSENT: calf tenderness, clubbing, joint swelling, pedal edema Musculoskeletal exam: PRESENT: ambulatory. ABSENT: deformity, dislocation Neurological exam: PRESENT: alert, awake Psychiatric exam: PRESENT: appropriate affect Skin exam: PRESENT: dry, warm Results Laboratory Results: 11/02/18 22:30 11/09/18 05:13 11/09/18 05:13 Sodium 127.3 L Potassium 3.7 Chloride 91 L Carbon Dioxide 29 Anion Gap 7 BUN 16 Creatinine 0.62 Est GFR ( Amer) > 60 Est GFR (Non-Af Amer) > 60 Glucose 92 Calcium 9.1 11/02/18 22:30 NT-Pro-B Natriuret Pep 103 Impressions: Chest CT 11/06/18 00:00 IMPRESSION: IRREGULAR LOBULAR MASS IN THE RIGHT HILUM EXTENDING INTO THE RIGHT LOWER LOBE. THIS CORRESPONDS WITH THE X-RAY FINDING. THIS COULD BE A PRIMARY TUMOR OR METASTASIS. THERE IS ALSO AN ENLARGED PRECARINAL LYMPH NODE CONCERNING FOR METASTATIC ADENOPATHY. Abdomen/Pelvis CT 11/07/18 00:00 IMPRESSION: No evidence of metastatic disease within the abdomen or pelvis. Head CT 11/07/18 00:00 IMPRESSION: NORMAL BRAIN CT WITH CONTRAST. No metastases. EVIDENCE OF ACUTE STROKE: NO. Assessment & Plan - Diagnosis (1) Lung mass Is this a current diagnosis for this admission?: Yes Plan: scheduled 13:30 11/10/18;patinet is agreeable,NPO p MN
[2018-11-09] MEDS: NICOTINE 14 MG/24 HR PATCH.TD24 TD SCH (14:28)
[2018-11-09] MEDS: ONDANSETRON 4 MG TAB.RAPDIS PO PRN (14:39)
[2018-11-09] MEDS ORDERED: ALBUTEROL SULFATE 0.083% NEB 2.5 MG/3 ML AMPUL NEB ONE ×3 (15:00→21:00)
--- NOTE | 2018-11-09 17:46 | PDOC PROGRESS REPORT ---
Subjective Progress Note for:: 11/09/18 Subjective:: No adverse events overnight. No new complaints. She says she still has a headache. She admitted to me today that she is been smoking about half a pack of cigarettes a day, and she thinks her headaches might be from nicotine withdrawal. Urine output is been good. She still had a intermittent cough. No fevers. No hemoptysis. Reason For Visit: HYPONATREMIA,NAUSEA Physical Exam Vital Signs: Temp Pulse Resp BP Pulse Ox 97.8 F 77 18 148/88 H 99 11/09/18 14:42 11/09/18 14:42 11/09/18 14:42 11/09/18 14:42 11/09/18 14:42 Intake & Output 11/08/18 11/09/18 11/10/18 06:59 06:59 06:59 Intake Total 1125 705 450 Output Total 500 700 900 Balance 625 5 -450 Weight 87 kg 86.9 kg General appearance: PRESENT: no acute distress, cooperative, obese Respiratory exam: PRESENT: clear to auscultation jacqui, symmetrical, unlabored. ABSENT: accessory muscle use, crackles, rhonchi, tachypnea, wheezes Cardiovascular exam: PRESENT: RRR, +S1, +S2 Vascular exam: PRESENT: normal capillary refill GI/Abdominal exam: PRESENT: normal bowel sounds, soft. ABSENT: distended, guarding, rebound, tenderness Extremities exam: ABSENT: clubbing, pedal edema Musculoskeletal exam: PRESENT: normal inspection. ABSENT: deformity Neurological exam: PRESENT: alert, awake, oriented to person, oriented to place, oriented to time, oriented to situation Psychiatric exam: PRESENT: appropriate affect, normal mood Skin exam: PRESENT: dry, warm Results Laboratory Results: 11/02/18 22:30 11/09/18 05:13 11/09/18 05:13 Sodium 127.3 L Potassium 3.7 Chloride 91 L Carbon Dioxide 29 Anion Gap 7 BUN 16 Creatinine 0.62 Est GFR ( Amer) > 60 Est GFR (Non-Af Amer) > 60 Glucose 92 Calcium 9.1 11/02/18 22:30 NT-Pro-B Natriuret Pep 103 Impressions: Chest CT 11/06/18 00:00 IMPRESSION: IRREGULAR LOBULAR MASS IN THE RIGHT HILUM EXTENDING INTO THE RIGHT LOWER LOBE. THIS CORRESPONDS WITH THE X-RAY FINDING. THIS COULD BE A PRIMARY TUMOR OR METASTASIS. THERE IS ALSO AN ENLARGED PRECARINAL LYMPH NODE CONCERNING FOR METASTATIC ADENOPATHY. Abdomen/Pelvis CT 11/07/18 00:00 IMPRESSION: No evidence of metastatic disease within the abdomen or pelvis. Head CT 11/07/18 00:00 IMPRESSION: NORMAL BRAIN CT WITH CONTRAST. No metastases. EVIDENCE OF ACUTE STROKE: NO. Assessment & Plan - Diagnosis (1) Hyponatremia Is this a current diagnosis for this admission?: Yes Plan: Now improving with fluid restriction and salt tablets; her sodium has plateaued, so I am going to increase the frequency of her salt tablets. 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 Paxil has been discontinued. The lung mass could also have something to do with it. (2) Lung mass Is this a current diagnosis for this admission?: Yes Plan: She is been seen in consultation by oncology and pulmonology. She will follow- up with oncology as an outpatient. She has been scheduled for a bronchoscopy for biopsy tomorrow. CT scans of the head, abdomen and pelvis were negative for evidence of metastatic disease. (3) Headache Qualifiers: Headache type: other headache syndrome Qualified Code(s): G44.89 - Other headache syndrome Is this a current diagnosis for this admission?: Yes Plan: Possibly from nicotine withdrawal. We ordered a nicotine patch. She said she got relief from the Toradol and Phenergan the other day, so I am going to give her another dose of that. - Time Time Spent with patient: 15-24 minutes
[2018-11-09] MEDS ORDERED: PROMETHAZINE HCL INJ 25 MG/1 ML VIAL IM PRN (17:47)
[2018-11-09] MEDS ORDERED: KETOROLAC TROMETHAMINE INJ/PF 30 MG/1 ML SDV IV ONE (17:47)
[2018-11-09] MEDS: ONDANSETRON HCL INJ/PF 4 MG/2 ML SDV IV PRN (23:12)
[2018-11-10] MEDS: HEPARIN SOD (PORCINE) 5,000 UNIT/ML 1 ML SYRINGE SUBCUT SCH ×3 (05:25→21:56)
[2018-11-10] MEDS ORDERED: ALBUTEROL SULFATE 0.083% NEB 2.5 MG/3 ML AMPUL NEB ONE (08:00)
[2018-11-10] MEDS: NICOTINE 14 MG/24 HR PATCH.TD24 TD SCH (10:14)
[2018-11-10] MEDS: SODIUM CHLORIDE 1 GM TABLET PO SCH ×4 (10:14→21:57)
[2018-11-10] MEDS ORDERED: EPINEPHRINE INJ 1 MG/10 ML DISP.SYRIN ONE (12:35)
[2018-11-10] MEDS ORDERED: MIDAZOLAM 2 MG/2 ML INJ ONE (13:06)
[2018-11-10] MEDS ORDERED: HYDROMORPHONE HCL INJ/PF 2 MG/ML AMPULE ONE (13:06)
[2018-11-10] MEDS ORDERED: FENTANYL CITRATE INJ/PF 100 MCG/2 ML AMPUL ONE (13:06)
[2018-11-10] MEDS ORDERED: EPHEDRINE SULFATE INJ 50 MG/1 ML AMPULE ONE (13:06)
[2018-11-10] MEDS ORDERED: LIDOCAINE 2% INJ-PF (20 MG/ML) 10 ML AMPUL ONE (13:06)
[2018-11-10] MEDS ORDERED: PROPOFOL INJ 200 MG/20 ML VIAL IV ONE (13:07)
[2018-11-10] MEDS ORDERED: LIDOCAINE 2% INJ (20 MG/ML) 20 ML MDV ONE (13:18)
[2018-11-10] MEDS ORDERED: FENTANYL CITRATE INJ/PF 100 MCG/2 ML AMPUL IV PRN (14:28)
[2018-11-10] MEDS ORDERED: PROMETHAZINE HCL INJ 25 MG/1 ML VIAL IV PRN ×2 (14:28)
[2018-11-10] MEDS ORDERED: MEPERIDINE HCL/PF INJ 25 MG/1 ML DISP.SYRIN IV PRN (14:28)
[2018-11-10] MEDS ORDERED: DIPHENHYDRAMINE HCL 50 MG/ML VIAL IV PRN (14:28)
--- NOTE | 2018-11-10 15:00 | PDOC PROGRESS REPORT ---
Subjective Progress Note for:: 11/10/18 Subjective:: w/o complaints awaiting procedure Reason For Visit: HYPONATREMIA,NAUSEA Physical Exam Vital Signs: Temp Pulse Resp BP Pulse Ox 97.2 F 86 14 160/82 H 96 11/10/18 14:18 11/10/18 14:33 11/10/18 14:33 11/10/18 14:33 11/10/18 14:33 Intake & Output 11/09/18 11/10/18 11/11/18 06:59 06:59 06:59 Intake Total 852 795 0546 Output Total 736 015 5511 Balance 5 450 -175 Weight 86.9 kg 85.2 kg General appearance: PRESENT: no acute distress, cooperative, disheveled, obese Head exam: PRESENT: atraumatic, normocephalic Eye exam: PRESENT: conjunctiva pale, EOMI. ABSENT: nystagmus, scleral icterus Mouth exam: PRESENT: dry mucosa, neck supple, tongue midline Neck exam: ABSENT: carotid bruit - [address], JVD, lymphadenopathy, thyromegaly, tracheal deviation, tracheostomy Respiratory exam: PRESENT: decreased breath sounds, prolonged expiratory phas, rhonchi, unlabored. ABSENT: tachypnea Cardiovascular exam: PRESENT: RRR, +S1, +S2 Pulses: PRESENT: normal radial pulses GI/Abdominal exam: PRESENT: soft. ABSENT: tenderness Extremities exam: PRESENT: full ROM. ABSENT: calf tenderness, clubbing, joint swelling, pedal edema Musculoskeletal exam: PRESENT: ambulatory, full ROM. ABSENT: deformity, dislocation Neurological exam: PRESENT: awake Psychiatric exam: PRESENT: appropriate affect Skin exam: PRESENT: dry, other Results Laboratory Results: 11/02/18 22:30 11/09/18 05:13 11/02/18 22:30 NT-Pro-B Natriuret Pep 103 Impressions: Chest CT 11/06/18 00:00 IMPRESSION: IRREGULAR LOBULAR MASS IN THE RIGHT HILUM EXTENDING INTO THE RIGHT LOWER LOBE. THIS CORRESPONDS WITH THE X-RAY FINDING. THIS COULD BE A PRIMARY TUMOR OR METASTASIS. THERE IS ALSO AN ENLARGED PRECARINAL LYMPH NODE CONCERNING FOR METASTATIC ADENOPATHY. Abdomen/Pelvis CT 11/07/18 00:00 IMPRESSION: No evidence of metastatic disease within the abdomen or pelvis. Head CT 11/07/18 00:00 IMPRESSION: NORMAL BRAIN CT WITH CONTRAST. No metastases. EVIDENCE OF ACUTE STROKE: NO. Assessment & Plan - Diagnosis (1) Lung mass Is this a current diagnosis for this admission?: Yes Plan: Proceed with fiberoptic bronchoscopy with bronchoalveolar lavage and transbronchial biopsy and needle biopsies as scheduled Friday, November 10, 2018
--- NOTE | 2018-11-10 15:03 | Operative Report ---
Operative Report DATE OF SURGERY: 11/10/18 Operative Report: Situation was reviewed by patient and family they agreed to bronchoscopy patient was kept n.p.o. 12 hours prior to procedure take in the preop area where she was again reviewed by surgery and signing consents for both anesthesia as well as the procedure was then taken to the Brown suite and she was intubated and sedated per anesthesiology and then using T size on the bronchoscope her tracheobronchial tree was explored there were no abnormalities of the baldomero or the mucosa variant no abnormalities of the left mainstem bronchus left upper lobe lingula or left lower lobe. There was some mucosal swelling in the orifice there were no abnormalities of the right mainstem bronchus. There was some submucosal swelling in the right upper lobe there were no abnormalities of the bronchus intermedius there was swelling at the orifice of the right middle lobe and the right lower lobe there was also swelling further into the right lower lobe beyond the orifice of the superior segment of the right upper lobe these areas were lavaged and biopsied and needles tissue and fluids have been sent to the lab for appropriate cultures and studies patient tolerated procedure well postprocedure SaO2 was 99% postprocedure chest x-ray did not demonstrate any pneumothorax PREOPERATIVE DIAGNOSIS: Right lung mass POSTOPERATIVE DIAGNOSIS: Same OPERATION: Fiberoptic bronchoscopy with bronchoalveolar lavage and transbronchial biopsy and [place] needle biopsy SURGEON: CHEN CHOI ANESTHESIA: GA TISSUE REMOVED OR ALTERED: Bronchial biopsies right lower lobe with a needle biopsy some right middle lobe and right lower COMPLICATIONS: None ESTIMATED BLOOD LOSS: None
--- NOTE | 2018-11-10 15:14 | RADIOLOGY REPORT (SQ) ---
EXAM DESCRIPTION: NO CHG FLUORO; CHEST SINGLE VIEW COMPLETED DATE/TIME: 11/10/2018 2:55 pm REASON FOR STUDY: BRONCHOSCOPY COMPARISON: None. FLUOROSCOPY TIME: 1.7 minutes 6 images saved to PACS. TECHNIQUE: Intra-operative images acquired during surgical procedure to evaluate progress. NUMBER OF IMAGES: 6 LIMITATIONS: None. FINDINGS: Selected fluoroscopic images from bronchoscopy. IMPRESSION: IMAGE(S) OBTAINED DURING PROCEDURE. COMMENT: Quality ID [id number]: Final reports for procedures using fluoroscopy that document radiation exp osure indices, or exposure time and number of fluorographic images (if radiation exposure indices are not available) Please consult full operative report of the attending physician for description of the procedure. TECHNICAL DOCUMENTATION: JOB ID: [id number] [employer]- All Rights Reserved Reading location - IP/workstation name: [email or web address]
--- NOTE | 2018-11-10 15:18 | PDOC CONSULTATION ---
Consultation Consult Date: 11/07/18 Attending physician:: KANDICE MCCAIN Consult reason:: lung mass History of Present Illness Admission Date/PCP: 11/02/18 23:27 LXEIE WOODS MD History of Present Illness: DAYTON LAM is a 62 year old female for a month to 2 months of nausea vomiting and hyponatremia she is status post mastectomy and chemotherapy for breast cancer. She denies shortness of breath or dyspnea on exertion has occasional cough is usually dry but nonproductive she denies hemoptysis PPD was negative dates unknown she had no history child or adolescent. She admits to exposure to passive smoke as a child as well as an adult she has self smoked half a pack a day for 35-40 years she does not have any significant occupational exposure posterior to potential respiratory toxins she has 1 pet dog and knows recent travel she denies angina-like chest pain sleeps on 2 pillows rare PND no nocturnal cough no edema she admits to snoring restless sleep nocturia 2-3 times per night unrestful sleep and excessive daytime somnolence. He carries a diagnosis of obstructive sleep apnea but admits to poor compliance with her CPAP she does not like her mask. Past Medical History Cardiac Medical History: Reports: Hyperlipidema Malignancy Medical History: Reports: Breast Cancer Psychiatric Medical History: Reports: Depression Past Surgical History Past Surgical History: Reports: Cholecystectomy, Hysterectomy Social History Lives with: Family Smoking Status: Smoker,Current Status Unk Frequency of Alcohol Use: None Drugs: None Hx Prescription Drug Abuse: No Do you have pets?: Yes Have you had any respiratory illnesses as a child?: No Have you been exposed to any sick contacts recently?: No Have you had any recent respiratory illnesses?: No Have you travelled outside of [place] in the past 12 months?: No - [id number] - Advance Directive Resuscitation Status: Full Code Family History Family History: CAD - 22647, Hypertension Parental Family History Reviewed: Yes Children Family History Reviewed: Yes Sibling(s) Family History Reviewed.: Yes Medication/Allergy Home Medications: Acetaminophen [Tylenol Extra Strength 500 mg Tablet] 1,000 mg PO Q4HP PRN 11/03/18 Ondansetron HCl [Zofran 4 mg Tablet] 4 mg PO Q6HP PRN 11/03/18 Paroxetine HCl [Paxil 20 mg Tablet] 20 mg PO QAM 11/03/18 Allergies/Adverse Reactions: codeine Allergy (Verified 11/03/18 15:03) shellfish derived Allergy (Verified 11/03/18 15:03) Review of Systems All systems: reviewed and no additional remarkable complaints except as stated Physical Exam Vital Signs: Temp Pulse Resp BP Pulse Ox 98.4 F 62 16 137/70 H 97 11/07/18 03:17 11/07/18 03:17 11/07/18 03:17 11/07/18 03:17 11/07/18 03:17 Intake & Output 11/06/18 11/07/18 11/08/18 06:59 06:59 06:59 Intake Total 675 550 Balance 675 550 Weight 87.8 kg 87 kg General appearance: PRESENT: no acute distress, cooperative, disheveled, obese Head exam: PRESENT: atraumatic, normocephalic Eye exam: PRESENT: conjunctiva pale, EOMI. ABSENT: nystagmus, scleral icterus Mouth exam: PRESENT: dry mucosa, neck supple, tongue midline Neck exam: ABSENT: carotid bruit, JVD, lymphadenopathy, thyromegaly, tracheal deviation, tracheostomy Respiratory exam: PRESENT: decreased breath sounds, prolonged expiratory phas, rhonchi, unlabored Cardiovascular exam: PRESENT: RRR, +S1, +S2. ABSENT: tachycardia Pulses: PRESENT: normal radial pulses - [id number] GI/Abdominal exam: PRESENT: soft. ABSENT: tenderness - [id number] Extremities exam: ABSENT: calf tenderness, clubbing, joint swelling, pedal edema Musculoskeletal exam: PRESENT: ambulatory. ABSENT: deformity, dislocation Neurological exam: PRESENT: alert, awake Psychiatric exam: PRESENT: appropriate affect - [id number] Skin exam: PRESENT: dry, warm - [id number] Results Laboratory Results: 11/02/18 22:30 11/07/18 06:17 11/06/18 11/07/18 09:10 06:17 Sodium 124.1 L 128.7 L Potassium 3.6 3.4 L Chloride 86 L 93 L Carbon Dioxide 27 28 Anion Gap 11 8 BUN 14 17 Creatinine 0.63 0.56 Est GFR ( Amer) > 60 > 60 Est GFR (Non-Af Amer) > 60 > 60 Glucose 118 H 87 Calcium 9.3 8.9 11/02/18 22:30 NT-Pro-B Natriuret Pep 103 Impressions: Chest CT 11/06/18 00:00 IMPRESSION: IRREGULAR LOBULAR MASS IN THE RIGHT HILUM EXTENDING INTO THE RIGHT LOWER LOBE. THIS CORRESPONDS WITH THE X-RAY FINDING. THIS COULD BE A PRIMARY TUMOR OR METASTASIS. THERE IS ALSO AN ENLARGED PRECARINAL LYMPH NODE CONCERNING FOR METASTATIC ADENOPATHY. Assessment & Plan - Diagnosis (1) Breast cancer Qualifiers: Laterality: unspecified laterality Is this a current diagnosis for this admission?: Yes Plan: as per oncology (2) Hyponatremia Is this a current diagnosis for this admission?: Yes Plan: fluid restriction (3) Lung mass Is this a current diagnosis for this admission?: Yes Plan: Proceed with fiberoptic bronchoscopy with bronchoalveolar lavage and transbronchial biopsy and needle biopsies as scheduled Friday, November 10, 2018
--- NOTE | 2018-11-10 15:19 | RADIOLOGY REPORT (SQ) ---
EXAM DESCRIPTION: CHEST SINGLE VIEW COMPLETED DATE/TIME: 11/10/2018 3:08 pm REASON FOR STUDY: S/P Lung Biospy COMPARISON: Chest CT 11/06/2018. NUMBER OF VIEWS: One view. TECHNIQUE: Single frontal radiographic image of the chest acquired. LIMITATIONS: None. FINDINGS: LUNGS AND PLEURA: No pneumothorax status post biopsy of right hilar and lower lobe mass. MEDIASTINUM AND HEART: Stable heart size and mediastinal structures. BONY STRUCTURES: No acute findings. HARDWARE: None. OTHER: No other significant finding. IMPRESSION: No pneumothorax. TECHNICAL DOCUMENTATION: JOB ID: [id number] Reading location - IP/workstation name: [email or web address]
[2018-11-10 15:51] LABS: FLUID SOURCE LUNG; FLUID TYPE BRONCHIAL WASH
[2018-11-10 15:52] LABS: FLUID APPEARANCE HAZY; FLUID COLOR RED; FLUID VISCOSITY SLIGHTLY VISCOUS
[2018-11-10] MEDS: ONDANSETRON HCL INJ/PF 4 MG/2 ML SDV IV PRN (16:59)
--- NOTE | 2018-11-10 17:14 | PDOC PROGRESS REPORT ---
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 Patient is seen on morning rounds. She is found sitting up to the recliner comfortably on room air. She is awaiting her planned bronchoscopy today. She does complain of slight persistent tension headache that she relates to nicotine withdrawal; symptoms have improved since starting nicotine patch yesterday evening. Otherwise, she is feeling well and is hopeful to be discharged to home within the next day or two. She does report a continued, intermittent, nonproductive cough. She denies fever, chills, chest pain, palpitations, dyspnea, orthopnea, abdominal pain, nausea, vomiting, diarrhea. She has no new questions or concerns. No concerns per nursing. Reason For Visit: HYPONATREMIA,NAUSEA Physical Exam Vital Signs: Temp Pulse Resp BP Pulse Ox 97.4 F 78 14 144/73 H 95 11/10/18 15:18 11/10/18 15:18 11/10/18 15:18 11/10/18 15:18 11/10/18 15:18 Intake & Output 11/09/18 11/10/18 11/11/18 06:59 06:59 06:59 Intake Total 070 526 7277 Output Total 968 387 0872 Balance 5 -450 -125 Weight 86.9 kg 85.2 kg General appearance: PRESENT: no acute distress, cooperative, obese, well- developed, well-nourished Head exam: PRESENT: atraumatic, normocephalic Eye exam: PRESENT: conjunctiva pink, EOMI, PERRLA. ABSENT: scleral icterus Mouth exam: PRESENT: moist, tongue midline Respiratory exam: PRESENT: clear to auscultation jacqui, symmetrical, unlabored. ABSENT: rales, rhonchi, wheezes Cardiovascular exam: PRESENT: RRR, +S1, +S2. ABSENT: diastolic murmur, rubs, systolic murmur Vascular exam: PRESENT: normal capillary refill GI/Abdominal exam: PRESENT: normal bowel sounds, soft. ABSENT: distended, guarding, mass, organolmegaly, rebound, tenderness Rectal exam: PRESENT: deferred Extremities exam: PRESENT: full ROM. ABSENT: calf tenderness, clubbing, pedal edema Neurological exam: PRESENT: alert, awake, oriented to person, oriented to place, oriented to time, oriented to situation, CN II-XII grossly intact. ABSENT: motor sensory deficit Psychiatric exam: PRESENT: appropriate affect, normal mood. ABSENT: homicidal ideation, suicidal ideation Skin exam: PRESENT: dry, intact, warm. ABSENT: cyanosis, rash Results Laboratory Results: 11/02/18 22:30 11/09/18 05:13 11/10/18 13:34 Fluid Type BRONCHIAL WASH Fluid Source LUNG Fluid Color RED Fluid Appearance HAZY Fluid Viscosity SLIGHTLY VISCOUS Fluid WBC 0 Fluid RBC [id number] 11/02/18 22:30 NT-Pro-B Natriuret Pep 103 Impressions: Chest CT 11/06/18 00:00 IMPRESSION: IRREGULAR LOBULAR MASS IN THE RIGHT HILUM EXTENDING INTO THE RIGHT LOWER LOBE. THIS CORRESPONDS WITH THE X-RAY FINDING. THIS COULD BE A PRIMARY TUMOR OR METASTASIS. THERE IS ALSO AN ENLARGED PRECARINAL LYMPH NODE CONCERNING FOR METASTATIC ADENOPATHY. Abdomen/Pelvis CT 11/07/18 00:00 IMPRESSION: No evidence of metastatic disease within the abdomen or pelvis. Head CT 11/07/18 00:00 IMPRESSION: NORMAL BRAIN CT WITH CONTRAST. No metastases. EVIDENCE OF ACUTE STROKE: NO. Chest X-Ray 11/10/18 14:00 IMPRESSION: No pneumothorax. Assessment & Plan - Diagnosis (1) Hyponatremia Is this a current diagnosis for this admission?: Yes Plan: Improved; 122.4--> 128.7--> 127.3 Suspect a combination of SIADH, Paxil (dose recently increased), and polydypsia (hx of same). May also be related to new lung mass. Patient is on a regular diet. Fluid restricted to 1200 mL daily. Continue Sodium 1 gm four times daily. Continue daily chemistries. (2) Headache Qualifiers: Headache type: other headache syndrome Qualified Code(s): G44.89 - Other headache syndrome Is this a current diagnosis for this admission?: Yes Plan: Improved; likely secondary to nicotine withdrawal as the patient reports significant improvement after receiving nicotine patch. Tylenol as needed. Given new dx of lung mass; consider Head MRI w/ contrast if DUNNE becomes intractable or is again associated with persistent nausea. (3) Lung mass Is this a current diagnosis for this admission?: Yes Plan: Head, abdomen and pelvic CTs were negative for evidence of metastatic disease. Consider head MRI with contrast if the patient has persistent headaches and/or nausea. Now s/p bronchoscopy with biopsies today by Dr. Romo Pulmonology has been consulted; appreciate Dr. Romo's assistance. Oncology has been consulted; appreciate Dr. Mackenzie's evaluation recommendations. Patient should follow-up with oncology as an outpatient. (4) Nausea Is this a current diagnosis for this admission?: Yes (5) Tobacco dependence Is this a current diagnosis for this admission?: Yes Plan: Smoking cessation is encouraged; nicotine replacement therapies are provided. - Time Time Spent with patient: 15-24 minutes Medications reviewed and adjusted accordingly: Yes Anticipated discharge: Home Within: within 48 hours
[2018-11-10] MEDS: ONDANSETRON 4 MG TAB.RAPDIS PO PRN (19:04)
[2018-11-10] MEDS: ACETAMINOPHEN 325 MG TABLET PO PRN (20:23)
[2018-11-11] MEDS: HEPARIN SOD (PORCINE) 5,000 UNIT/ML 1 ML SYRINGE SUBCUT SCH ×2 (05:36→15:11)
[2018-11-11 06:15] LABS: HEMATOCRIT 41.2 % (36.0-47.0); HEMOGLOBIN 14.2 g/dL (12.0-15.5); MEAN CORPUSCULAR HEMOGLOBIN 29.5 pg (27.0-33.4); MEAN CORPUSCULAR HGB CONC 34.4 g/dL (32.0-36.0); MEAN CORPUSCULAR VOLUME 86 fl (80-97); PLATELET COUNT 193 10^3/uL (150-450); RED CELL DISTRIBUTION WIDTH 13.7 % (11.5-14.0); WHITE BLOOD COUNT 4.7 10^3/uL (4.0-10.5)
[2018-11-11 06:35] LABS: ANION GAP 7 (5-19); BLOOD UREA NITROGEN 17 mg/dL (7-20); CALCIUM 9.6 mg/dL (8.4-10.2); CARBON DIOXIDE 29 mmol/L (22-30); CHLORIDE 94 mmol/L (98-107); GLUCOSE 106 mg/dL (75-110); POTASSIUM 3.7 mmol/L (3.6-5.0); SODIUM 129.5 mmol/L (137-145)
[2018-11-11] MEDS: SODIUM CHLORIDE 1 GM TABLET PO SCH ×2 (11:36→15:11)
[2018-11-11] MEDS: ACETAMINOPHEN 325 MG TABLET PO PRN (11:36)
[2018-11-11] MEDS: NICOTINE 14 MG/24 HR PATCH.TD24 TD SCH (11:37)
[2018-11-11] MEDS ORDERED: GLYCOPYRROLATE 1 MG/5 ML SYRINGE ONE (12:47)
[2018-11-11] MEDS ORDERED: ROCURONIUM BROMIDE INJ 50 MG/5 ML VIAL IV ONE (12:47)
[2018-11-11] MEDS ORDERED: DEXAMETHASONE SOD PHOSPHATE INJ 4 MG/1 ML VIAL ONE (12:47)
[2018-11-11] MEDS ORDERED: SUCCINYLCHOLINE CHLORIDE INJ 200 MG/10 ML VIAL ONE (12:47)
[2018-11-11] MEDS ORDERED: NEOSTIGMINE METHYLSULFATE 10 MG/10 ML VIAL ONE (12:47)
[2018-11-11] MEDS ORDERED: ONDANSETRON HCL INJ/PF 4 MG/2 ML SDV ONE (12:47)
[2018-11-11 16:11] VITALS: BP 144/67
--- NOTE | 2018-11-12 18:03 | PDOC DISCHARGE SUMMARY ---
General - Admit/Disc Date/PCP Admission Date/Primary Care Provider: 11/02/18 23:27 LEXIE WOODS MD Discharge Date: 11/11/18 - Discharge Diagnosis (1) Hyponatremia Is this a current diagnosis for this admission?: Yes Summary: Improved; 122.4--> 128.7--> 127.3--> 129.5 Suspect a combination of SIADH, Paxil (dose recently increased), and polydypsia (hx of same). May also be related to new lung mass. Patient was educated on the importance of maintaining a regular diet and fluid restriction of 1200 mL's daily. She is discharged home with a prescription for Sodium 1 g 3 times daily. She is instructed to follow-up with her primary care provider within 1 week with recommendations for repeat lab work at that time. (2) Headache Is this a current diagnosis for this admission?: Yes Summary: Improved; likely secondary to nicotine withdrawal as the patient reports significant improvement after receiving nicotine patch. Tylenol or Fioricet as needed. Given new dx of lung mass; would recommend consideration of head MRI w/ contrast if DUNNE becomes intractable or is again associated with persistent nausea to e valuate for evidence of metastasis. (3) Lung mass Is this a current diagnosis for this admission?: Yes Summary: Head, abdomen and pelvic CTs were negative for evidence of metastatic disease. Consider head MRI with contrast if the patient has persistent headaches and/or nausea. Now s/p bronchoscopy with biopsies 11/10/[address] Romo Pulmonology and oncology were consulted. Patient is directed follow-up with oncology, Dr. Mackenzie as scheduled on 11/19/18. The patient has an established appointment with Dr. Romo in January; recommend attempting to obtain an earlier appointment if able. Dr. Romo has expressed interest in obtaining PFT studies. (4) Nausea Is this a current diagnosis for this admission?: Yes Summary: Resolved. (5) Tobacco dependence Is this a current diagnosis for this admission?: Yes Summary: Smoking cessation is encouraged; a prescription for NicoDerm patches was provided. - Additional Information Resuscitation Status: Full Code Discharge Diet: Regular Discharge Activity: Activity As Tolerated, Balance Activity w/Rest Prescriptions: Butalb/Acetaminophen/Caffeine [Fioricet (50-325-40 mg) Tablet] 1 - 2 tab PO Q4H #20 tab Nicotine [Nicoderm 14 mg/24 Hr Transdermal Patch] 1 each TD DAILY #30 patch.td24 Sodium Chloride [Sodium Chloride 1 gm Tablet] 1 gm PO TID #30 tablet Home Medications: Acetaminophen [Tylenol Extra Strength 500 mg Tablet] 1,000 mg PO Q4HP PRN 11/03/18 Ondansetron HCl [Zofran 4 mg Tablet] 4 mg PO Q6HP PRN 11/03/18 Acetaminophen [Tylenol 325 mg Tablet] 650 mg PO Q4HP PRN tablet 11/11/18 Butalb/Acetaminophen/Caffeine [Fioricet (50-325-40 mg) Tablet] 1 - 2 tab PO Q4H #20 tab 11/11/18 Nicotine [Nicoderm 14 mg/24 Hr Transdermal Patch] 1 each TD DAILY #30 patch.td24 11/11/18 Sodium Chloride [Sodium Chloride 1 gm Tablet] 1 gm PO TID #30 tablet 11/11/18 History of Present Illness History of Present Illness: Per H&P by Dr. Carpio: DAYTON LAM is a 62 year old female with a past medical history of depression, resolved breast cancer status post mastectomy and chemotherapy, and hypertension who has had hyponatremia in the 120s from July who was found to have a sodium of 119 and referred to the hospital emergency department for evaluation. Patient has been consuming 64 ounces of Pedialyte over the last 2 months for treatment. Also complains of fatigue and intermittent nausea but denies vomiting, headache or seizure activity. In the emergency room she is found to have a sodium of 122 she receives Zofran and is referred to the hospitalist for admission. She admits a recent increase to her Paxil dose 2 months ago. Patient says she is constantly drinking whether it be Pedialyte or diet Sprite. Physical Exam Vital Signs: Temp Pulse Resp BP Pulse Ox 97.8 F 86 16 144/67 H 100 11/11/18 16:10 11/11/18 16:10 11/11/18 16:10 11/11/18 16:10 11/11/18 16:10 Intake & Output 11/11/18 11/12/18 11/13/18 06:59 06:59 06:59 Intake Total 1275 459 Output Total 3600 400 Balance -2325 59 Weight 84.5 kg General appearance: PRESENT: no acute distress, cooperative - Pleasant, obese, well-developed, well-nourished Head exam: PRESENT: atraumatic, normocephalic Eye exam: PRESENT: conjunctiva pink, EOMI, PERRLA. ABSENT: scleral icterus Ear exam: PRESENT: normal external ear exam Mouth exam: PRESENT: moist, tongue midline Neck exam: ABSENT: carotid bruit, JVD, lymphadenopathy, thyromegaly Respiratory exam: PRESENT: clear to auscultation jacqui. ABSENT: rales, rhonchi, wheezes Cardiovascular exam: PRESENT: RRR. ABSENT: diastolic murmur, rubs, systolic murmur Pulses: PRESENT: normal dorsalis pedis pul Vascular exam: PRESENT: normal capillary refill GI/Abdominal exam: PRESENT: normal bowel sounds, soft. ABSENT: distended, guarding, mass, organolmegaly, rebound, tenderness Rectal exam: PRESENT: deferred Extremities exam: PRESENT: full ROM. ABSENT: calf tenderness, clubbing, pedal edema Neurological exam: PRESENT: alert, awake, oriented to person, oriented to place, oriented to time, oriented to situation, CN II-XII grossly intact. ABSENT: motor sensory deficit Psychiatric exam: PRESENT: appropriate affect, normal mood. ABSENT: homicidal ideation, suicidal ideation Skin exam: PRESENT: dry, intact, warm. ABSENT: cyanosis, rash Results Laboratory Results: 11/11/18 05:50 11/11/18 05:50 11/10/18 13:34 Bronchial Washings Gram Stain - Final 11/10/18 13:34 Bronchial Washings Bronchial Washings Culture - Final REDUCED NORMAL AISHWARYA 11/02/18 22:30 NT-Pro-B Natriuret Pep 103 Impressions: Chest CT 11/06/18 00:00 IMPRESSION: IRREGULAR LOBULAR MASS IN THE RIGHT HILUM EXTENDING INTO THE RIGHT LOWER LOBE. THIS CORRESPONDS WITH THE X-RAY FINDING. THIS COULD BE A PRIMARY TUMOR OR METASTASIS. THERE IS ALSO AN ENLARGED PRECARINAL LYMPH NODE CONCERNING FOR METASTATIC ADENOPATHY. Abdomen/Pelvis CT 11/07/18 00:00 IMPRESSION: No evidence of metastatic disease within the abdomen or pelvis. Head CT 11/07/18 00:00 IMPRESSION: NORMAL BRAIN CT WITH CONTRAST. No metastases. EVIDENCE OF ACUTE STROKE: NO. Chest X-Ray 11/10/18 14:00 IMPRESSION: No pneumothorax. Qualifiers - * PATIENT BEING DISCHARGED WITH ANY OF THE FOLLOWING DIAGNOSIS: No Plan Discharge Plan: The patient is discharged home in stable condition, maintaining oxygen saturations on room air, and independently ambulatory. She is provided prescriptions for Fioricet, sodium chloride tablets, and NicoDerm patches. She is instructed to follow-up with the following providers : Follow-up with primary care provider within 1 week. Recommend repeat chemistry to assess hyponatremia at that time. Follow-up with oncology, Dr. Mackenzie, as scheduled on 11/19/18. Follow-up with pulmonology, Dr. Romo, as scheduled on 02/03/19 or sooner as needed. Return to the emergency department as needed for concerning symptoms. Time Spent: Less than 30 Minutes
== END 2018-11-11 16:31 | disposition home or self-care (01) | DRG 641 ==
LOC: ER 19:38 → EH 23:27 → 3S 11-03 12:21
PROVIDERS: ADMIT Internal Medicine; ATTEND Internal Medicine
PROC: 0BD68ZX Extraction of Right Lower Lobe Bronchus, Via Natural or Artificial Opening Endoscopic, Diagnostic (ICD-10-PCS; principal; 2018-11-09)
PROC: 0BD58ZX Extraction of Right Middle Lobe Bronchus, Via Natural or Artificial Opening Endoscopic, Diagnostic (ICD-10-PCS; 2018-11-09)
PROC: 0B9C8ZX Drainage of Right Upper Lung Lobe, Via Natural or Artificial Opening Endoscopic, Diagnostic (ICD-10-PCS; 2018-11-09)
DX: E87.1 Hypo-osmolality and hyponatremia (principal); E66.9 Obesity, unspecified; F32.9 Major depressive disorder, single episode, unspecified; I10 Essential (primary) hypertension; E78.5 Hyperlipidemia, unspecified; R11.2 Nausea with vomiting, unspecified; F17.210 Nicotine dependence, cigarettes, uncomplicated; G44.89 Other headache syndrome; R91.8 Other nonspecific abnormal finding of lung field; R63.1 Polydipsia; R06.83 Snoring; R35.1 Nocturia; G47.33 Obstructive sleep apnea (adult) (pediatric); Z91.19 Patient's noncompliance with other medical treatment and regimen; Z85.3 Personal history of malignant neoplasm of breast; Z90.10 Acquired absence of unspecified breast and nipple; Z82.49 Family history of ischemic heart disease and other diseases of the circulatory system; Z80.49 Family history of malignant neoplasm of other genital organs
CPT/HCPCS: 31624; 31628; 31629; 36415; 520; 70460; 71045; 71260; 74177; 80048; 80053; 81001; 82533; 83880; 83930; 83935; 84300; 84443; 85025; 85027; 85610; 85730; 87015; 87070; 87086; 87088; 87101; 87116; 87205; 87206; 87486; 88112; 88173; 88305; 89050; 93005; 93010; 94640; 99285; J0171; J0330; J1100; J1170; J1644; J1885; J1940; J2250; J2300; J2405; J2550; J2704; J3010; J3490; J7030; S0119

== ENCOUNTER → 2018-11-02 | Outpatient (CLI) | payer BC ==
[2018-11-02 17:47] LABS: APPEARANCE,URINE CLEAR; BILIRUBIN,URINE NEGATIVE (NEGATIVE); COLOR,URINE YELLOW; GLUCOSE, URINE NEGATIVE (NEGATIVE); KETONES,URINE NEGATIVE (NEGATIVE); LEUKOCYTE ESTERASE,URINE NEGATIVE (NEGATIVE); NITRITE,URINE NEGATIVE (NEGATIVE); PROTEIN,URINE NEGATIVE (NEGATIVE); URINE SPECIFIC GRAVITY 1.016; UROBILINOGEN,URINE NEGATIVE mg/dL (<2.0)
[2018-11-02 18:04] LABS: ANION GAP 9 (5-19); BLOOD UREA NITROGEN 15 mg/dL (7-20); CALCIUM 9.1 mg/dL (8.4-10.2); CARBON DIOXIDE 29 mmol/L (22-30); CHLORIDE 85 mmol/L (98-107); GLUCOSE 93 mg/dL (75-110); POTASSIUM 3.8 mmol/L (3.6-5.0); SODIUM 123.4 mmol/L (137-145); URINE SODIUM 39 mmol/L (30-90)
[2018-11-02 18:11] LABS: OSMOLALITY,URINE 487 mOsm/kg (300-900)
== END ==
LOC: OD 16:27
PROVIDERS: ATTEND Physician Assistant Medical
DX: E87.1 Hypo-osmolality and hyponatremia (principal); R11.2 Nausea with vomiting, unspecified
CPT/HCPCS: 36415; 80048; 81001; 83930; 83935; 84300

== ENCOUNTER 2019-11-17 10:20 | Day surgery (SDC) | payer BC, MEDICARE ==
[~2019-11-17 10:20] MED LIST: CHONDR SU A NA/HYALUR INTRAOC KIT (SURGICARE) ONE; EPINEPHRINE INJ/PF 1 MG/1 ML AMPULE ONE; KETOROLAC TROMETHAMINE 0.45% 4 DROP/0.4 ML DROPERETTE OD PRN; LACTATED RINGERS 1000 ML IV PRN; LIDOCAINE 0.5% INJ-PF (5 MG/ML) 50 ML SDV SUBCUT PRN; LIDOCAINE 1%/PHENYLEPHRINE 1.5% 1 ML VIAL ONE
[2019-11-17] MEDS ORDERED: FENTANYL CITRATE INJ/PF 100 MCG/2 ML AMPUL ONE (10:44)
[2019-11-17] MEDS ORDERED: MIDAZOLAM 2 MG/2 ML INJ ONE (10:44)
[2019-11-17] MEDS ORDERED: ONDANSETRON HCL INJ/PF 4 MG/2 ML SDV ONE (10:44)
[2019-11-17] MEDS: TETRACAINE HCL 0.5% OPH SOLN 4 ML OD PRN ×3 (10:49→11:28)
[2019-11-17] MEDS: CYCLOPENTOLATE 0.2%/PHENYLEPHRINE 1% OPH SOLN 2 ML OD PRN ×3 (10:49→11:08)
[2019-11-17] MEDS: TROPICAMIDE 1% OPH SOLN 15 ML OD PRN ×3 (10:49→11:08)
[2019-11-17] MEDS: BESIFLOXACIN HCL 0.6% OPH SUSP 5 ML BOTTLE OD PRN ×4 (10:50→11:48)
[2019-11-17] MEDS ORDERED: FAMOTIDINE INJ/PF 20 MG/2 ML SDV IV ONE (11:22)
[2019-11-17] MEDS: DORZOLAMIDE HCL 2%/TIMOLOL MALEAT 0.5% OPH SOLN 10 ML OD PRN ×2 (11:48)
--- NOTE | 2019-11-17 15:13 | Operative Report ---
Operative Report-[facility] Operative Report: DATE OF SURGERY: November 17, 2019 PREOPERATIVE DIAGNOSIS: NUCLEAR CATARACT, RIGHT EYE. POSTOPERATIVE DIAGNOSIS: NUCLEAR CATARACT, RIGHT EYE. PROCEDURE PERFORMED: PHACOEMULSIFICATION WITH POSTERIOR CHAMBER INTRAOCULAR LENS IMPLANT, RIGHT EYE. SURGEON: Domingo Hunt DO MEDICATIONS AND ANESTHESIA: Versed: IV Versed Tetracaine drops: 1 to 2 drops given as needed COMPLICATION: [None] INDICATIONS FOR SURGERY: Medical necessity: Best corrected visual acuity worse than 20/40 secondary to cataracts with impairment of ability to carry out needs or desired activities, blurred vision, visual distortion, reduced contrast sensitivity and/or glare with association functional impairment and supporting documentation/testing, and cataracts causing symptomatic impairment of visual functions not corrected with tolerable changes in glasses or contact lenses interfering with activities of daily life. PROCEDURE: Consent: The risks, benefits and alternatives of this procedures was discussed with the patient. The patient read and signed the consent forms, was identified and was seated in the exam chair. IOL: MX 60 IOL Diopters: 16.5 Phacoemulsification with posterior chamber intraocular lens implant: The face was prepped with 5% povidone iodine solution, and a few drops of 5% povidone iodine solution was instilled into the inferior fornix. A non-fenestrated drape was placed over the eye and the lids were parted with the speculum. A paracentesis was made with a 15 degree blade, and 1% lidocaine MPF followed by viscoelastic was injected into the anterior chamber. A 2.4 mm metal micro- keratome was used to create a temporal clear corneal incision. A circular anterior capsulorrhexis was created, followed by hydro-dissection and hydro- delineation. The phacoemulsification hand piece was inserted and the nucleus was removed with the Phaco chop technique. The irrigation-aspiration hand piece was used to remove the residual cortex, and vacuum the posterior capsule. The capsular bag was inflated and viscoelastic and the above-mentioned IOL was injected into the eye with care to insert both leaning and trailing haptics in the capsular bag. The irrigation/aspiration hand piece was reinserted to remove residual viscoelastic from the capsular bag and anterior chamber. The corneal incision was hydrated, and anterior chamber was inflated with sterile BSS via the paracentesis site, and found to be watertight. Postop medication: 1 drop of prednisolone into operative by followed by 1 drop of Cosopt into operative eye followed by 1 drop of Besivance intraoperative by other: []
== END 2019-11-17 12:23 | disposition home or self-care (01) ==
LOC: SC 10:20
PROVIDERS: ATTEND Ophthalmology
DX: H25.11 Age-related nuclear cataract, right eye (principal); F17.210 Nicotine dependence, cigarettes, uncomplicated; I10 Essential (primary) hypertension; K21.9 Gastro-esophageal reflux disease without esophagitis; Z85.3 Personal history of malignant neoplasm of breast; Z79.51 Long term (current) use of inhaled steroids; Z79.899 Other long term (current) drug therapy; Z88.5 Allergy status to narcotic agent; Z85.118 Personal history of other malignant neoplasm of bronchus and lung
CPT/HCPCS: 66984; V2632; J2250; J3490 ×2; J0171; J3010; J2405; S0028; J2370; 142

== ENCOUNTER 2019-12-01 07:17 | Day surgery (SDC) | payer BC, MEDICARE ==
[~2019-12-01 07:17] MED LIST changes: -CHONDR SU A NA/HYALUR INTRAOC KIT (SURGICARE) ONE; +DORZOLAMIDE HCL 2%/TIMOLOL MALEAT 0.5% OPH SOLN 10 ML OS PRN; -KETOROLAC TROMETHAMINE 0.45% 4 DROP/0.4 ML DROPERETTE OD PRN; +KETOROLAC TROMETHAMINE 0.45% 4 DROP/0.4 ML DROPERETTE OS PRN; -LACTATED RINGERS 1000 ML IV PRN; -LIDOCAINE 0.5% INJ-PF (5 MG/ML) 50 ML SDV SUBCUT PRN; -LIDOCAINE 1%/PHENYLEPHRINE 1.5% 1 ML VIAL ONE
[2019-12-01] MEDS ORDERED: LIDOCAINE 1%/PHENYLEPHRINE 1.5% 1 ML VIAL ONE (07:19)
[2019-12-01] MEDS ORDERED: CHONDR SU A NA/HYALUR INTRAOC KIT (SURGICARE) ONE (07:20)
[2019-12-01] MEDS ORDERED: ONDANSETRON HCL INJ/PF 4 MG/2 ML SDV ONE (07:22)
[2019-12-01] MEDS ORDERED: FENTANYL CITRATE INJ/PF 100 MCG/2 ML AMPUL ONE (07:23)
[2019-12-01] MEDS ORDERED: MIDAZOLAM 2 MG/2 ML INJ ONE (07:23)
[2019-12-01] MEDS ORDERED: LIDOCAINE 1% INJ-PF (10 MG/ML) 30 ML SDV ONE (07:43)
[2019-12-01] MEDS: TROPICAMIDE 1% OPH SOLN 15 ML OS PRN ×3 (07:49→08:05)
[2019-12-01] MEDS: CYCLOPENTOLATE 0.2%/PHENYLEPHRINE 1% OPH SOLN 2 ML OS PRN ×3 (07:49→08:05)
[2019-12-01] MEDS: BESIFLOXACIN HCL 0.6% OPH SUSP 5 ML BOTTLE OS PRN ×3 (07:49→08:33)
[2019-12-01] MEDS: TETRACAINE HCL 0.5% OPH SOLN 4 ML OS PRN ×3 (07:49→08:11)
--- NOTE | 2019-12-02 10:19 | Operative Report ---
Operative Report-[facility] Operative Report: DATE OF SURGERY: December 01, 2019 PREOPERATIVE DIAGNOSIS: NUCLEAR CATARACT, LEFT EYE. POSTOPERATIVE DIAGNOSIS: NUCLEAR CATARACT, LEFT EYE. PROCEDURE PERFORMED: PHACOEMULSIFICATION WITH POSTERIOR CHAMBER INTRAOCULAR LENS IMPLANT, LEFT EYE. SURGEON: Domingo Hunt DO MEDICATIONS AND ANESTHESIA: Versed: IV Versed Tetracaine drops: 1 to 2 drops given as needed COMPLICATION: None INDICATIONS FOR SURGERY: Medical necessity: Best corrected visual acuity worse than 20/40 secondary to cataracts with impairment of ability to carry out needs or desired activities, blurred vision, visual distortion, reduced contrast sensitivity and/or glare with association functional impairment and supporting documentation/testing, and cataracts causing symptomatic impairment of visual functions not corrected with tolerable changes in glasses or contact lenses interfering with activities of daily life. PROCEDURE: Consent: The risks, benefits and alternatives of this procedures was discussed with the patient. The patient read and signed the consent forms, was identified and was seated in the exam chair. IOL: MX 60 IOL Diopters: 18.0 Phacoemulsification with posterior chamber intraocular lens implant: The face was prepped with 5% povidone iodine solution, and a few drops of 5% povidone iodine solution was instilled into the inferior fornix. A non-fenestrated drape was placed over the eye and the lids were parted with the speculum. A paracentesis was made with a 15 degree blade, and 1% lidocaine MPF followed by viscoelastic was injected into the anterior chamber. A 2.4 mm metal micro- keratome was used to create a temporal clear corneal incision. A circular anterior capsulorrhexis was created, followed by hydro-dissection and hydro- delineation. The phacoemulsification hand piece was inserted and the nucleus was removed with the Phaco chop technique. The irrigation-aspiration hand piece was used to remove the residual cortex, and vacuum the posterior capsule. The capsular bag was inflated and viscoelastic and the above-mentioned IOL was injected into the eye with care to insert both leaning and trailing haptics in the capsular bag. The irrigation/aspiration hand piece was reinserted to remove residual viscoelastic from the capsular bag and anterior chamber. The corneal incision was hydrated, and anterior chamber was inflated with sterile BSS via the paracentesis site, and found to be watertight. Postop medication:1 drop of prednisolone into operative by followed by 1 drop of Cosopt into operative eye followed by 1 drop of Besivance intraoperative by Other:
== END 2019-12-01 09:20 | disposition home or self-care (01) ==
LOC: SC 07:17
PROVIDERS: ATTEND Ophthalmology
DX: H25.12 Age-related nuclear cataract, left eye (principal); Z98.41 Cataract extraction status, right eye; I10 Essential (primary) hypertension; Z79.51 Long term (current) use of inhaled steroids; Z79.899 Other long term (current) drug therapy; F17.210 Nicotine dependence, cigarettes, uncomplicated; Z88.5 Allergy status to narcotic agent; Z85.3 Personal history of malignant neoplasm of breast; Z85.118 Personal history of other malignant neoplasm of bronchus and lung
CPT/HCPCS: 66984; V2632; J2250; J3490 ×2; J0171; J2405; J2370; 142; J3010